=== PATIENT | female | born 1975 | race Caucasian/White ===

== ENCOUNTER 2017-07-06 11:15 | Observation (INO) ==
[~2017-07-06 11:15] MED LIST: SODIUM CHLORIDE 1,000 ML IV STA
[2017-07-06] MEDS ORDERED: ATIVAN IVP STA (11:21)
[2017-07-06] MEDS ORDERED: KEPPRA 1,000 MG in SODIUM CHLORIDE 100 ML IV STA (11:23)
[2017-07-06 11:32] LABS: BASOPHILS % (AUTO) 0.2 % (0.0-3.0); EOSINOPHILS % (AUTO) 0.1 % (0.0-7.0); HEMATOCRIT 37.3 % (37.0-47.0); HEMOGLOBIN 13.3 g/dl (12.0-16.0); IMMATURE GRANULOCYTE % (AUTO) 0.6 % (0.0-5.0); LYMPHOCYTES % (AUTO) 39.1 (10.0-50.0); MEAN CORPUSCULAR HEMOGLOBIN 37.8 pg (27.0-31.0); MEAN CORPUSCULAR HGB CONC 35.7 (31.8-35.4); MONOCYTES # (AUTO) 0.9 K/uL (0.4-2.0); MONOCYTES % (AUTO) 8.9 (0-10); NEUTROPHILS # (AUTO) 5.2 K/ul (2.0-6.9); NEUTROPHILS % (AUTO) 51.1; PLATELET COUNT 180 10^3/uL (140-440); RED BLOOD COUNT 3.52 10^6/ul (4.20-5.40)
[2017-07-06 11:38] LABS: ANISOCYTOSIS 1+ (NOT PRESENT)
[2017-07-06 11:44] LABS: ABG BASE EXCESS -3 (-2.0-2.0); ABG HCO3 23.1 (22.0-26.0); ABG PCO2 48.1 mmHg (35-45); ABG TCO2 25 (22.0-28.0)
[2017-07-06 11:50] LABS: SERUM PREGNANCY INTERNAL QC INTERNAL QC VALID
[2017-07-06 12:07] LABS: ALANINE AMINOTRANSFERASE 24 U/L (12-78); ALBUMIN 4.1 g/dL (3.4-5.0); ALBUMIN/GLOBULIN RATIO 1.58; ALKALINE PHOSPHATASE 127 U/L (42-98); ANION GAP 16.7; ASPARTATE AMINO TRANSFERASE 25 U/L (15-37); BLOOD UREA NITROGEN 11 mg/dL (7-18); BUN/CREATININE RATIO 14.28; CALCIUM 9.2 mg/dL (8.2-10.2); CARBON DIOXIDE 23 mmol/L (21-32); CHLORIDE 108 mmol/L (98-107); CREATININE 0.77 mg/dL (0.60-1.30); GLUCOSE 112 mg/dL (70-110); POTASSIUM 3.7 mmol/L (3.5-5.10); SODIUM 144 mmol/L (136-145); TOTAL PROTEIN 6.7 g/dL (6.4-8.2); VALPORIC ACID (DEPAKENE) < 2.00 ug/mL (50.00-100.00)
[2017-07-06 12:08] LABS: CREATINE KINASE 58 U/L
[2017-07-06 12:27] LABS: ADD URINE MICROSCOPIC YES; BILIRUBIN,URINE Negative (NEGATIVE); KETONES,URINE Negative (NEGATIVE); LEUKOCYTE ESTERASE ,URINE Negative (NEGATIVE); NITRITE,URINE Negative (NEGATIVE); PROTEIN,URINE 2+ (NEGATIVE); URINE, BLOOD Negative (NEGATIVE)
[2017-07-06 12:31] LABS: BACTERIA,URINE 1+ (NOT PRESENT)
--- NOTE | 2017-07-06 12:36 | CT ---
EXAM: CT head without contrast HISTORY: History of seizures COMPARISON: CT head 01/26/2016 and 12/20/2014 TECHNIQUE: Serial axial images of the brain were obtained from the skull base to the vertex without IV contrast. FINDINGS: Evaluation is limited due to artifact from hearing ends metallic artifact. There is low a ttenuation in the periventricular white matter and irregularity of the right frontal with associated christina hole. This is not significantly changed when compared to prior CT. There are calcifications of the basal ganglia. The ventricles, cisterns and sulci are unchanged. The poole-white matter junctio n is otherwise maintained. No midline shift or mass is identified. There is no abnormal intra or ex tra-axial fluid collection. The paranasal sinuses and mastoid air cells are clear. The osseous calv arium is intact. IMPRESSION: 1. No acute intracranial abnormality or hemorrhage. Evaluation is limited due to metallic artifact from the veins. 2. Surgical changes of a right frontal calvarium with underlying encephalomalacia unchanged from kylie or exam.
[2017-07-06 12:52] LABS: COCAIN SCREEN,URINE NEGATIVE (NEGATIVE)
--- NOTE | 2017-07-06 13:52 | ED.PDOC ---
General ED Provider: Dr. PIETRO ARIAS-ER Chief Complaint: Seizure Stated Complaint: she had a seizure at [facility]--she hasnt had a seizure in about a year according to the Time Seen by Physician: 10:30 Mode of Arrival: Wheelchair Information Source: Other Exam Limitations: Altered mental status Nursing and Triage Documentation Reviewed and Agree: Yes Neurological Complaint Exam - Seizure Complaint/Exam Onset/Duration: 20 min ago Symptoms Are: Resolved Episodes Lasting: Seconds Single or Multiple Episode: 1 Failed to Regain Consciousness: No Severity: Self-limited Location: All extremities Character: Generalized, Tonic-clonic Aggravating: Reports: None Alleviating: Reports: Spontaneous resolution Associated Signs and Symptoms: Reports: Bowel incontinence, Lethargy. Denies: Anxiety, Emotional distress, Impaired speech, Bladder incontinence, Trauma, Illness, Vomiting, Apnea Related History: Reports: Similar episode Meningitis Risk Factors: Reports: None Carotid Bruit Present: No Cephalohematoma Present: No Tongue Bitten: No Neck Pain Present: No Glascow Coma Scale (see protocol): 14 Nystagmus Present: No Gag Reflex Present: Yes Speech: Present: Dysarthric Aphasia: Present: Expressive Meningeal Signs Positive: No Focal Weakness: Present: None Focal Sensory Loss: Reports: None Gait: Normal [id number]: Normal Findings Pronator Drift: Present: None Romberg Test Positive: No Babinski Sign: Negative Right, Negative Left Heel to Toe Normal: No Signs of Injury: Present: Normal findings Differential Diagnoses: CVA, Intracranial Bleed, Metabolic Disorder, Seizure Review of Systems - Review Of Systems Constitutional: Reports: No symptoms Eyes: Reports: No symptoms Ears, Nose, Mouth, Throat: Reports: No symptoms Respiratory: Reports: No symptoms Cardiac: Reports: No symptoms GI: Reports: No symptoms : Reports: No symptoms Musculoskeletal: Reports: No symptoms Skin: Reports: No symptoms Neurological: Reports: Tonic-Clonic seizures Endocrine: Reports: No symptoms Hematologic/Lymphatic: Reports: Anemia All Other Systems: Reviewed and Negative Past Medical History - Past Medical History Previously Healthy: No Endocrine: Reports: Hypothyroid Cardiovascular: Reports: Hypertension Respiratory: Reports: Pneumonia, Other (STAPH INFECTION) Hematological: Reports: Other (ALL) Gastrointestinal: Reports: None Genitourinary: Reports: None Neuro/Psych: Reports: Bipolar Disorder Musculoskeletal: Reports: None Cancer: Reports: None Last Menstrual Period: unknown - Surgical History General Surgical History: Reports: Unknown - Family History Family History: Reports: Unknown - Social History Smoking Status: Never smoker Hx Substance Use: No Alcohol Screening: None Lives: With family Physical Exam - Physical Exam Appearance: Well-appearing, No pain distress, Well-nourished Eyes: AURELIO, EOMI, Conjunctiva clear, Right pupil size, Left pupil size (there is diff in pupil size but says this is normal for her) ENT: Ears normal, Nose normal, Oropharynx normal Neck: Supple Respiratory: Airway patent Cardiovascular: RRR, Pulses normal, No rub, No murmur GI/: Soft, Nontender, No masses, Bowel sounds normal, No Organomegaly Musculoskeletal: Normal strength Skin: Warm, Dry, Normal color Neurological: Alert Psychiatric: Affect appropriate, Mood appropriate Interpretation - Radiology Interpretation Radiology Interpretation By: Radiologist Radiology Results: Negative Exam Interpreted: CT Scan - EKG Interpretation Time of EKG #1: 13:55 Rate: Normal Rhythm: Sinus Ectopy: None Lequire: NL ST Segment: Normal Interpretation: nsr Re-Evaluation - Re-Evaluation Time of Re-Evaluation: 14:10 Status: Improved (moving all extremities--answering questions from her ) Vital Signs Stable: Yes Pain Level: 0 Appearance: NAD Lungs: Clear Skin: Warm and Dry Neuro: Alert and Oriented X3 CV: RRR Physician Notification - Case Discussed Physician Notified: dr wilde Time of Notification: 14:30 Critical Care Note - Critical Care Note Total Time (mins): 20 Course - Course Hematology/Chemistry: 07/06/17 11:25 07/06/17 11:25 Orders, Labs, Meds: Lab Review 07/06/17 07/06/17 07/06/17 11:13 11:25 11:25 WBC 10.10 RBC 3.52 L Hgb 13.3 Hct 37.3 MCV 106.0 H MCH 37.8 H MCHC 35.7 H RDW Coeff of Harpreet 13.1 Plt Count 180 Immature Gran % (Auto) 0.6 Neut % (Auto) 51.1 Lymph % (Auto) 39.1 Castro % (Auto) 8.9 Eos % (Auto) 0.1 Baso % (Auto) 0.2 Immature Gran # (Auto) 0.1 Neut # 5.2 Lymph # 4.0 H Castro # 0.9 Eos # 0.0 Baso # 0.0 Anisocytosis 1+ Macrocytosis 1+ Puncture Site Rr O2 Saturation 91.0 L ABG pH 7.290 L* ABG pCO2 48.1 H ABG pO2 69.0 L ABG HCO3 23.1 ABG Total CO2 25 ABG Base Excess -3 L Christian Test + FiO2 % 21.0 Sodium 144 Potassium 3.7 Chloride 108 H Carbon Dioxide 23 Anion Gap 16.7 BUN 11 Creatinine 0.77 Estimated GFR (MDRD) 82.00 BUN/Creatinine Ratio 14.28 Glucose 112 H Calcium 9.2 Magnesium 2.0 Total Bilirubin 0.40 AST 25 ALT 24 Alkaline Phosphatase 127 H Total Creatine Kinase Troponin I Total Protein 6.7 Albumin 4.1 Globulin 2.6 Albumin/Globulin Ratio 1.58 Serum , Qual Urine Color Urine Clarity Urine pH Ur Specific [place] Urine Protein Urine Glucose (UA) Urine Ketones Urine Blood Urine Nitrite Urine Bilirubin Urine Urobilinogen Ur Leukocyte Esterase Urine Microscopic WBC Ur Squamous Epith Cells Urine Bacteria Urine Opiates Screen Ur Oxycodone Screen Urine Methadone Screen Ur Propoxyphene Screen Ur Barbiturates Screen Valproic Acid < 2.00 L U Tricyclic Antidepress Ur Phencyclidine Scrn Ur Amphetamine Screen U Methamphetamines Scrn U Benzodiazepines Scrn Urine Cocaine Screen U Cannabinoids Screen 07/06/17 07/06/17 07/06/17 11:25 11:35 12:18 WBC RBC Hgb Hct MCV MCH MCHC RDW Coeff of Harpreet Plt Count Immature Gran % (Auto) Neut % (Auto) Lymph % (Auto) Castro % (Auto) Eos % (Auto) Baso % (Auto) Immature Gran # (Auto) Neut # Lymph # Castro # Eos # Baso # Anisocytosis Macrocytosis Puncture Site O2 Saturation ABG pH ABG pCO2 ABG pO2 ABG HCO3 ABG Total CO2 ABG Base Excess Christian Test FiO2 % Sodium Potassium Chloride Carbon Dioxide Anion Gap BUN Creatinine Estimated GFR (MDRD) BUN/Creatinine Ratio Glucose Calcium Magnesium Total Bilirubin AST ALT Alkaline Phosphatase Total Creatine Kinase 58 Troponin I < 0.0100 Total Protein Albumin Globulin Albumin/Globulin Ratio Serum , Qual Negative Urine Color Yellow Urine Clarity Clear Urine pH 5.0 Ur Specific [place] 1.025 Urine Protein 2+ Urine Glucose (UA) Negative Urine Ketones Negative Urine Blood Negative Urine Nitrite Negative Urine Bilirubin Negative Urine Urobilinogen 0.2 Ur Leukocyte Esterase Negative Urine Microscopic WBC 2-5 Ur Squamous Epith Cells 0-2 Urine Bacteria 1+ Urine Opiates Screen Ur Oxycodone Screen Urine Methadone Screen Ur Propoxyphene Screen Ur Barbiturates Screen Valproic Acid U Tricyclic Antidepress Ur Phencyclidine Scrn Ur Amphetamine Screen U Methamphetamines Scrn U Benzodiazepines Scrn Urine Cocaine Screen U Cannabinoids Screen 07/06/17 12:18 WBC RBC Hgb Hct MCV MCH MCHC RDW Coeff of Harpreet Plt Count Immature Gran % (Auto) Neut % (Auto) Lymph % (Auto) Castro % (Auto) Eos % (Auto) Baso % (Auto) Immature Gran # (Auto) Neut # Lymph # Castro # Eos # Baso # Anisocytosis Macrocytosis Puncture Site O2 Saturation ABG pH ABG pCO2 ABG pO2 ABG HCO3 ABG Total CO2 ABG Base Excess Christian Test FiO2 % Sodium Potassium Chloride Carbon Dioxide Anion Gap BUN Creatinine Estimated GFR (MDRD) BUN/Creatinine Ratio Glucose Calcium Magnesium Total Bilirubin AST ALT Alkaline Phosphatase Total Creatine Kinase Troponin I Total Protein Albumin Globulin Albumin/Globulin Ratio Serum , Qual Urine Color Urine Clarity Urine pH Ur Specific [place] Urine Protein Urine Glucose (UA) Urine Ketones Urine Blood Urine Nitrite Urine Bilirubin Urine Urobilinogen Ur Leukocyte Esterase Urine Microscopic WBC Ur Squamous Epith Cells Urine Bacteria Urine Opiates Screen Negative Ur Oxycodone Screen Negative Urine Methadone Screen Negative Ur Propoxyphene Screen Negative Ur Barbiturates Screen Negative Valproic Acid U Tricyclic Antidepress Negative Ur Phencyclidine Scrn Negative Ur Amphetamine Screen Negative U Methamphetamines Scrn Negative U Benzodiazepines Scrn Negative Urine Cocaine Screen Negative U Cannabinoids Screen Negative Orders Category Date Time Status ABG DRAW REQUEST Stat CARDIO 07/06/17 11:13 Completed EKG-(ED ONLY) Stat CARDIO 07/06/17 11:13 Completed Marketing Development Specialist [ED SWITCH FOREMAN APPLIED] .ONCE EMERGENCY 07/06/17 11:14 Active ED IV/MEDIPORT/POWERPORT .ONCE EMERGENCY 07/06/17 11:14 Active ABG Stat LAB 07/06/17 11:13 Completed CBC W/ AUTO DIFF Stat LAB 07/06/17 11:25 Completed COMPREHENSIVE METABOLIC PANEL Stat LAB 07/06/17 11:25 Completed CREATINE KINASE Stat LAB 07/06/17 11:25 Completed KEPPRA/LEVETIRACETAM Stat LAB 07/06/17 11:35 Received MAGNESIUM Stat LAB 07/06/17 11:25 Completed SERUM TEST [SERUM ] Stat LAB 07/06/17 11:35 Completed RBC MORPHOLOGY Stat LAB 07/06/17 11:25 Completed TROPONIN I Stat LAB 07/06/17 11:25 Completed URINALYSIS C & S IF INDICATED Stat LAB 07/06/17 12:18 Completed URINE DRUG SCREEN (RAPID FOR ED) [DRUG SCREEN, URINE, LAB 07/06/17 12:18 Completed RAPID] Stat VALPORIC ACID (DEPAKENE) Stat LAB 07/06/17 11:25 Completed 0.9 % Sodium Chloride [Saline Flush] MEDS 07/06/17 11:14 Active 1 syr IVF PRN PRN Levetiracetam Inj [Keppra] 1,000 mg MEDS 07/06/17 11:23 Discontinued 0.9 % Sodium Chloride [Sodium Chloride] 100 ml IV ONCE Lorazepam Inj [Ativan] MEDS 07/06/17 11:21 Discontinued 2 mg IVP ONCE STA Sodium Chloride 0.9% [Sodium Chloride] 1,000 ml MEDS 07/06/17 11:14 Active IV 100 mls/hr CT HEAD W/O CONTRAST Stat RADS 07/06/17 11:13 Completed Medications Generic Name Dose Route Start Last Admin Trade Name Freq PRN Reason Stop Dose Admin Sodium Chloride 1,000 mls @ 100 mls/hr 07/06/17 11:14 07/06/17 11:40 Sodium Chloride IV 07/06/17 21:13 100 mls/hr .Q10H STA Administration Sodium Chloride 1 syr 07/06/17 11:14 Saline Flush IVF PRN PRN To flush IV Discontinued Medications Generic Name Dose Route Start Last Admin Trade Name Freq PRN Reason Stop Dose Admin Levetiracetam 1,000 mg/ Sodium 110 mls @ 100 mls/hr 07/06/17 11:23 07/06/17 11:41 Chloride IV 07/06/17 12:28 100 mls/hr ONCE STA Administration Lorazepam 2 mg 07/06/17 11:21 07/06/17 11:24 Ativan IVP 07/06/17 11:22 2 mg ONCE STA Administration Long discussion with the --he asked if she could be kept here instead of being transferred to [place]---her last seizure was last year and he says she acted "just like this" after the seizure--at this time she is alert but sleepy-- answering questions and moving all extremities Vital Signs: Temp Pulse Resp BP Pulse Ox 07/06/17 11:20 97.2 F L 119 H 20 149/97 H 96 Departure - Departure Time of Disposition: 14:32 Disposition: PLACED OBSERVATION Discharge Problem: Seizure Instructions: Epilepsy (ED) Condition: Fair Pt referred to PMD for follow-up: No Allergies/Adverse Reactions: Allergies erythromycin lactobionate [From Erythrocin] Adverse Reaction (Verified 07/06/17 11:53) latex Adverse Reaction (Verified 07/06/17 11:53) Penicillins Adverse Reaction (Verified 07/06/17 11:53) Sulfa (Sulfonamide Antibiotics) Adverse Reaction (Verified 07/06/17 11:53) tape Adverse Reaction (Uncoded 12/20/14 20:31) Home Medications: Ambulatory Orders Levothyroxine Sodium [Synthroid] 75 mcg PO DAILY 05/17/14 Potassium Chloride [Klor-Con 10] 20 meq PO DAILY 05/17/14 Ziprasidone HCl 20 mg PO DAILY 05/17/14 Hydrochlorothiazide 25 mg PO DAILY 06/27/14 Lamotrigine [Lamictal] 100 mg PO QID 06/27/14 Metoprolol Tartrate [Lopressor] 50 mg PO DAILY 12/20/14 Benztropine Mesylate [Cogentin] 1 mg PO DAILY 01/26/16 Cyclobenzaprine HCl [Flexeril] 10 mg PO DAILY 01/26/16 Levetiracetam [Keppra] 500 mg PO BID 01/26/16 Valacyclovir HCl [Valtrex] 1,000 mg PO TID 01/26/16 Disposition Discussed With: Patient, Family
[2017-07-06] MEDS ORDERED: ATIVAN IVP PRN (14:35)
[2017-07-06] MEDS ORDERED: CYCLOBENZAPRINE HCL 10 MG PO PRN ×21 (14:37)
[2017-07-06] MEDS ORDERED: SODIUM CHLORIDE 1,000 ML IV SCH (15:00)
[2017-07-06 15:42] VITALS: BMI 30.8
[2017-07-06] MEDS ORDERED: LAMOTRIGINE 200 MG PO SCH (21:00)
[2017-07-06] MEDS ORDERED: NON-FORMULARY MEDICATION (Levetiracetam [Keppra] 750 MG) PO SCH (21:00)
[2017-07-06] MEDS ORDERED: BENZTROPINE MESYLATE 1 MG PO SCH (21:00)
[2017-07-06] MEDS ORDERED: NON-FORMULARY MEDICATION (Potassium Chloride [Klor-Con 10] 20 MEQ) PO SCH ×22 (21:00)
[2017-07-07 07:12] LABS: ALBUMIN 3.4 g/dL (3.4-5.0); ALBUMIN/GLOBULIN RATIO 1.55; ANION GAP 12.9; BILIRUBIN,TOTAL 0.51 mg/dL (0.00-1.20); BUN/CREATININE RATIO 10.29; CALCIUM 9.4 mg/dL (8.2-10.2); CREATININE 0.68 mg/dL (0.60-1.30); POTASSIUM 2.9 mmol/L (3.5-5.10); TOTAL PROTEIN 5.6 g/dL (6.4-8.2)
[2017-07-07 07:17] LABS: BASOPHILS % (AUTO) 0.1 % (0.0-3.0); HEMOGLOBIN 11.6 g/dl (12.0-16.0); IMMATURE GRANULOCYTE % (AUTO) 0.3 % (0.0-5.0); LYMPHOCYTES # (AUTO) 1.2 K/uL (0.60-3.4); LYMPHOCYTES % (AUTO) 16.4 (10.0-50.0); MEAN CORPUSCULAR HEMOGLOBIN 39.2 pg (27.0-31.0); MEAN CORPUSCULAR HGB CONC 37.9 (31.8-35.4); MEAN CORPUSCULAR VOLUME 103.4 fl (81.0-99.0); MONOCYTES # (AUTO) 0.5 K/uL (0.4-2.0); MONOCYTES % (AUTO) 7.4 (0-10); NEUTROPHILS # (AUTO) 5.5 K/ul (2.0-6.9); NEUTROPHILS % (AUTO) 75.8; PLATELET COUNT 138 10^3/uL (140-440); RED BLOOD COUNT 2.96 10^6/ul (4.20-5.40); WHITE BLOOD COUNT 7.26 K/ul (4.6-10.2)
[2017-07-07 07:25] LABS: ANISOCYTOSIS NOT PRESENT (NOT PRESENT); HEMATOCRIT 30.6 % (37.0-47.0)
[2017-07-07] MEDS ORDERED: POTASSIUM CHLORIDE PREMIX RUN 40 MEQ in PREMIX 100 ML WATER 2 BAG IV STA (08:17)
[2017-07-07] MEDS ORDERED: K-DUR PO STA (08:17)
[2017-07-07] MEDS ORDERED: NON-FORMULARY MEDICATION (Potassium Chloride [Klor-Con 10] 20 MEQ) PO SCH ×22 (09:00)
[2017-07-07] MEDS ORDERED: METOPROLOL TARTRATE 25 MG PO SCH ×22 (09:00)
[2017-07-07] MEDS ORDERED: NON-FORMULARY MEDICATION (Levothyroxine Sodium [Synthroid] 75 MCG) PO SCH ×22 (09:00)
[2017-07-07] MEDS ORDERED: ZIPRASIDONE HCL 20 MG PO SCH (09:00)
[2017-07-07] MEDS ORDERED: VALACYCLOVIR HCL 1000 MG PO SCH (09:00)
[2017-07-07 13:22] VITALS: BP 105/74; TEMP 98.2
[2017-07-07] MEDS ORDERED: NON-FORMULARY MEDICATION (Levetiracetam [Keppra] 750 MG) PO SCH (21:00)
[2017-07-07] MEDS ORDERED: BENZTROPINE MESYLATE 1 MG PO SCH (21:00)
[2017-07-07] MEDS ORDERED: LAMOTRIGINE 200 MG PO SCH (21:00)
[2017-07-08] MEDS ORDERED: NON-FORMULARY MEDICATION (Hydrochlorothiazide [Hydrochlorothiazide] 25 MG) PO SCH ×22 (09:00)
--- NOTE | 2017-07-18 15:23 | HP ---
DATE OF SERVICE: 07/06/17 CHIEF COMPLAINT: Unresponsive episode and seizure. HISTORY OF PRESENT ILLNESS: The patient was at [employer] and had an unresponsive episode and seizures and had a soiling of the clothes. She was in post-ictal stage where she is not responding. Eyes are open. Right pupil is larger than the left. Nonverbal. Brought to the emergency room and seen by Dr. Herrera in the emergency room. Initial evaluation shows Valproic acid level is less than 2. CT of the head was negative. Urine-no infection. BUN and creatinine is normal. ABG showed a pH of 7.290, PCO2 48.1, PO2 69, white count is normal and platelets are normal. The patient was still in a post ictal stage where she was not responding just having steady looks in the air. At that time, the patient was admitted to the hospital for observation and neuro checks. The patient did not have any recent stressors. REVIEW OF SYSTEMS: No fever, no coughing, no congestion. No recent falls or head trauma. PAST MEDICAL HISTORY: Very extensive with history of seizure disorder. 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 She sees Dr. Mora. The seizures started after they put the port in the brain for the chemotherapy of the ALL. She had DVT's is 2015 in the left leg. She has a history of stroke. GERD. Osteoarthritis. History of hypothyroidism. Bipolar disorder. Depression, Anxiety. 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 Inflammation in the left eye being treated by Dr. Lomas. PAST SURGICAL HISTORY: Cholecystectomy. PERSONAL HISTORY: Does not smoke or drink, but the smokes. FAMILY HISTORY: Significant for the diabetes. MEDICATIONS: Synthroid 75 mcg daily Ziprasidone 20 mg daily Klor-Con 20 mEq daily with meals Lamictal 200 mg at bedtime Hydrochlorothiazide 25 mg every other day Keppra 500 mg daily Valtrex 1,000 mg daily Flexeril 10 mg daily Cogentin 1 mg at bedtime Prednisolone Acetate 10 ml at hs Keppra 750 mg at bedtime Propylene Glycol one drop each eye every hour prn Azelastine 2 sprays NS twice daily Metoprolol Tartrate 12.5 mg daily Atropine Sulfate 10 ml weekly ALLERGIES: Erythromycin, latex and Penicillin. PHYSICAL EXAMINATION: V/S: Blood pressure 141/97, respiratory rate 96, temperature 97.2, saturation 100% on 2 liters. Heart rate 119. HEENT: Atraumatic, normocephalic. No scleral icterus. Mucosa dry. NECK: Supple. No JVD, no bruit. No lymphadenopathy. No thyromegaly. HEART: S1, S2 normal. No murmur. No cyanosis or clubbing. No ascites. LUNGS: Clear to auscultation. No rales or rhonchi. ABDOMEN: Soft, nontender. Bowel sounds are active. No CVA tenderness. No rigidity or guarding. EXTREMITIES: No cyanosis, clubbing or pedal edema. MUSCULOSKELETAL: Normal joints, no swelling. NEUROLOGIC: Still patient is very slow in answering the questions. is answering all of the questions. He says this is normal for the patient after having a seizure. SKIN: Intact; no open lesions. LYMPHATIC: No lymph nodes palpable. LABS: White count is 10.10, hemoglobin 13.3, hematocrit 37.3, platelet count 180, ABG with pH 7.290, PCO2 48.1, PO2 69, sodium 144, potassium 3.7, chloride 108, bicarb 23, BUN 11, creatinine 0.77, glucose 112. Urine negative. Toxicology with valproic acid level less than 2. ASSESSMENT: 1. BREAK THROUGH SEIZURE WITH EXTENSIVE HISTORY FOR ALL AND UNDER CHEMO. SHE IS SEEN BY DR. MORA. 2. BIPOLAR DISORDER 3. ANXIETY DISORDER 4. HYPOTHYROIDISM 5. HYPERTENSION 6. TREATMENT FOR SHINGLES, CHRONIC SUPPRESSIVE TREATMENT PLAN: 1. Admit the patient to observation. 2. Seizure precautions. 3. Fall precautions. 4. Continue the Keppra. 5. Continue IV fluids. 6. Aspiration precautions. 7. Regular diet. 8. Will follow up with the patient in daily rounds. TIME SPENT: MORE THAN 70 minutes today. YADY
--- NOTE | 2017-08-08 12:53 | DS ---
DATE OF SERVICE: 07/07/17 FINAL DIAGNOSIS: 1. Break through seizure 2. Change in mental status secondary to the seizure 3. Status post Hypokalemia 4. Bipolar 5. History of pneumonia 6. Cholecystectomy 7. Bladder sling surgery 8. History of shingles right eye 9. Leukemia, remission still does intense chemo 10.Rheumatic fever 11.Hearing loss after Rheumatic fever DISCHARGE INSTRUCTIONS: Discharge the patient home. Followup with the primary care provider. In case of seizure please bring patient back to the emergency room. MEDICATIONS AT DISCHARGE: Systane eye drops Astelin eye drops Cogentin Flexeril Hydrochlorothiazide Lamictal Keppra Synthroid Lopressor Potassium Prednisone Valtrex NEW PRESCRIPTIONS: No new medications added DIET INSTRUCTIONS: Cardiac and healthy ACTIVITY: As much as tolerated SMOKING: Never smoker DISEASE SPECIFIC EDUCATION: Seizure disorder Fall precaution Advised not to drive HOSPITAL COURSE: Carpio Inga who is a 42 year old female with history of seizure problems brought to the emergency room after she had a witnessed seizure in the [place]ze and after bringing the patient to the emergency room she had one more seizure for which the patient was evaluated in the emergency room by Dr. Herrera. The patient was given 2mg of the Ativan in the emergency room which broke the seizure and the patient was confused and postictal. At that time was admitted to the hospital and started on the IV fluids. Potassium was 2.9 which was corrected, went up to 3.6. Hgb and hct had dropped from hgb 13.3 to 11.6. Urine did not show any infection. CT of the head is negative for any acute problem. By next day at noon the patient is more awake and alert and did not have any problems. She says that every time she does a seizure she get a change a mental status and she has to take come rest and she will be fine. The patient has a followup with the PMD and the neurologist. The patient is being discharged home. TIME SPENT: MORE THAN 55 MINUTES MTDD
== END 2017-07-07 17:15 | disposition home or self-care (01) ==
LOC: ED 11:15 → SCU 14:36
PROVIDERS: ADMIT Emergency Medicine; ATTEND Emergency Medicine
DX: G40.409 Other generalized epilepsy and epileptic syndromes, not intractable, without status epilepticus (principal); C91.01 Acute lymphoblastic leukemia, in remission; E87.6 Hypokalemia; F31.9 Bipolar disorder, unspecified; B02.30 Zoster ocular disease, unspecified; I00 Rheumatic fever without heart involvement; H91.8X3 Other specified hearing loss, bilateral; Z79.899 Other long term (current) drug therapy; Z87.01 Personal history of pneumonia (recurrent); Z86.718 Personal history of other venous thrombosis and embolism
CPT/HCPCS: 36415; 80053; 80164; 80306; 81001; 82542; 82550; 82803; 83735; 84132; 84484; 84703; 85008; 85025; 87081; 93005; 93010; 96361; 96365; 96366; 96374; 96375; 99284

== ENCOUNTER 2024-11-15 01:17 | Inpatient (IN) ==
[2024-11-15 01:38] VITALS: BMI 33.5
[2024-11-15 01:48] LABS: BASOPHILS % (AUTO) 0.2 % (0.0-3.0); EOSINOPHILS # (AUTO) 0.2 K/ul (0.0-0.7); HEMATOCRIT 35.1 % (37.0-47.0); HEMOGLOBIN 12.3 g/dl (12.0-16.0); IMMATURE GRANULOCYTE % (AUTO) 0.2 % (0.0-5.0); LYMPHOCYTES # (AUTO) 1.1 K/uL (0.60-3.4); LYMPHOCYTES % (AUTO) 18.3 (10.0-50.0); MEAN CORPUSCULAR HEMOGLOBIN 35.5 pg (27.0-31.0); MEAN CORPUSCULAR VOLUME 101.4 fl (81.0-99.0); MONOCYTES # (AUTO) 0.3 K/uL (0.4-2.0); MONOCYTES % (AUTO) 5.3 (0-10); NEUTROPHILS # (AUTO) 4.4 K/ul (2.0-6.9); PLATELET COUNT 129 10^3/uL (140-440); RDW COEFFICIENT OF VARIATION 14.7 % (11.6-14.8); RED BLOOD COUNT 3.46 10^6/ul (4.20-5.40); WHITE BLOOD COUNT 6.07 K/ul (4.6-10.2)
[2024-11-15 01:59] LABS: ALANINE AMINOTRANSFERASE 17.4 U/L (0-35); ALBUMIN 3.92 g/dL (3.5-5.0); ALKALINE PHOSPHATASE 126.2 U/L (38-126); ASPARTATE AMINO TRANSFERASE 30.8 U/L (14-36); BILIRUBIN,TOTAL 0.91 mg/dL (0.2-1.3); BLOOD UREA NITROGEN 9.7 mg/dL (7-17); CARBON DIOXIDE 21.2 mmol/L (22-30.0); CHLORIDE 95.6 mmol/L (98-107); SODIUM 127.7 mmol/L (134.5-145); TOTAL PROTEIN 5.96 g/dL (6.3-8.2)
[2024-11-15] MEDS: SODIUM CHLORIDE 1,000 ML IV ONE ×2 (02:03→03:05)
--- NOTE | 2024-11-15 02:04 | DI ---
EXAM: SINGLE VIEW OF THE CHEST. History: Chest pain, short of breath Comparison: Chest radiograph 12/12/2023 FINDINGS: Heart size is normal. Left lower lobe infiltrate. No appreciable pleural fluid and no pn eumothorax. Hazy opacity within the left upper lobe. No acute osseous abnormalities. Impression: Left lower lobe pneumonia and questionable left upper lobe pneumonia
[2024-11-15] MEDS: MAXIPIME 2 GM/50 ML D5W 2 GM/50 ML BAG IV ONE (02:14)
[2024-11-15 02:18] LABS: BLOOD ALCOHOL < 10.0 mg/dL (0.0-50.0); POTASSIUM 2.75 mmol/L (3.5-5.1); TROPONIN I < 0.012 ng/ml (0.0000-0.120)
[2024-11-15 02:23] LABS: PARTIAL THROMBOPLASTIN TIME 28.8 SEC (23.9-40.0); PROTHROMBIN TIME 10.9 SEC (9.3-11.0)
[2024-11-15] MEDS: K-DUR PO STA (02:28)
--- NOTE | 2024-11-15 02:49 | CT ---
EXAM: CT HEAD WITHOUT CONTRAST 11/15/2024. SAGITTAL AND CORONAL REFORMATTED IMAGES OBTAINED HISTORY: Altered mental status COMPARISON: 04/14/2022 FINDINGS: There is no evidence of intracranial hemorrhage. The midline is maintained. There is no h ydrocephalus. Stable right frontal lobe encephalomalacia. No cerebellar tonsillar ectopia. Evaluat ion of the calvarium shows no fracture. The mastoid air cells are normally pneumatized. Mucosal thi ckening throughout the paranasal sinuses consistent with pansinusitis. IMPRESSION: 1. No acute intracranial abnormality 2. Stable right frontal lobe encephalomalacia. 3. Pansinusitis. All CT scans are performed using dose optimization techniques as appropriate to the performed exam an d include at least one of the following: Automated exposure control, adjustment of the mA and/or kV according t o size, and the use of iterative reconstruction technique.
[2024-11-15 02:51] LABS: RSV MOLECULAR NEGATIVE BY NAAT (NEGATIVE)
[2024-11-15 02:52] LABS: MOLECULAR FLU A NEGATIVE BY NAAT (NEGATIVE); MOLECULAR FLU B NEGATIVE BY NAAT (NEGATIVE); SARS COV-2 RNA RAPID NAAT NEGATIVE (NEGATIVE)
[2024-11-15] MEDS: PROTONIX IVP ONE (03:05)
--- NOTE | 2024-11-15 03:16 | ED.PDOC ---
General ED Provider: Dr. ALIRIO BOX DO Chief Complaint: Shortness of Air Stated Complaint: 49-year-old female presents to the ER reporting shortness of breath, nausea vomiting and confusion. Accompanied by her who is the primary historian given the confusion. The patient's had a persistent cough for the last 3 weeks and had some antibiotics and steroids prescribed by their primary care provider and fell. Despite this, she has had continued coughing and what sounds like posttussive emesis. She also has increased confusion which the patient does have a history of a hearing impairment as well as encephalomalacia. She is reportedly confused consistent with when she has had urinary tract infections in the past. She currently denies any urinary symptoms. History limited otherwise due to the patient's confusion where she seems to answer questions a bit tangential he compared to the questions asked such as talking about other situations like when she injured her ankles. It is unclear if she thinks that I am asking about the situations or if she is just focused on those instead of the questions being asked in person. I consider this confusion due to the patient's hearing impairment which does make it difficult for her to understand what I am asking Time Seen by Provider: 11/15/24 01:20 Information Source: Patient and Family Primary Care Provider: ANGELIA BAILEY Nursing and Triage Documentation Reviewed and Agree: Yes What is Opioid Naive?: *Opioid Naive implies the patient is not already taking opioids or not chronically receiving opioids on a daily basis. *PRN dosing is not "usually" associated with tolerance. *Patients are at higher risk of over-sedation and aspiration. What is Opioid Tolerant?: *Opioid Tolerance implies less than the expected response to an opioid. *Acquired tolerance is defined by the patient taking 60mg of oral morphine daily (or equianalgesic dose of another opioid) for 1 week or more. *Often associated with chronic pain. *May take more than usual dose to achieve desired pain control. Review of Systems Review Of Systems Constitutional: Reports No symptoms All Other Systems: Reviewed and Negative [facility] Medical History (Updated 11/17/24 @ 13:19 by DEANNE PAGAN, [employer]) Thyroid condition E07.9 - Disorder of thyroid, unspecified (ICD-10) Hearing loss H91.90 - Unspecified hearing loss, unspecified ear (ICD-10) Family History FATHER Diabetes Other Hearing loss Social History Smoking and tobacco status: Never smoker History of recent travel: No Surgical History Status post myringotomy with insertion of tube Z96.22 - Myringotomy tube(s) status (ICD-10) Female Reproductive History Menstrual Hx Hysterectomy: No Hx Tubal Ligation: No Physical Exam Physical Exam Appearance: Reports Well-appearing, No pain distress, Well-nourished and Other (Tangential and sometimes off topic when answering questions. Otherwise nontoxic in appearance.) Eyes: Reports AURELIO and EOMI ENT: Reports Nose normal and Oropharynx normal Neck: Supple Respiratory: Reports Airway patent, Breath sounds clear and Respirations nonlabored Cardiovascular: Reports RRR and Pulses normal GI/: Reports Soft and Nontender Musculoskeletal: Reports Normal strength and ROM intact Skin: Reports Warm, Dry and Normal color Neurological: Reports Sensation intact, Motor intact, Alert and Oriented Psychiatric: Reports Affect appropriate and Mood appropriate Interpretation EKG Interpretation EKG Interpretation By: ED Physician (Independent interpretation) Time of EKG #1: 02:44 Rate: Tachy (129) Rhythm: Sinus Ectopy: None Minto: NL ST Segment: Normal Interpretation: Nonischemic EKG, tachycardic Radiology Interpretation Radiology Interpretation By: Radiologist Radiology Results: Positive (Left lower lobe and possible upper lobe pneumonia) Exam Interpreted: Portable CXR Re-Evaluation Re-Evaluation Additional Comments: 49-year-old female presents to the ER with confusion and persistent cough. Chest x-ray consistent with pneumonia. She does not have a leukocytosis. She is afebrile nontoxic but she does demonstrate some confusion. ABG was a mixed gas study evidenced by the low oxygen level. She does not have a significant hypercarbia however which is what I was trying to assess with regards to her confusion. She does not have a abnormal pH either. I obtained a pneumonia which was also negative, given the pneumonia found on chest x-ray, the patient was given 2 g of cefepime initially. She is tachycardic but otherwise remained stable. I did not pursue a septic workup. The patient was also found to have a hyponatremia with a sodium of 127.7 as well as hypokalemia. These could also be contributing factors to her confusion. Will continue IV fluids. This patient will require hospitalization. I will continue gentle rehydration in the emergency department and recheck her labs with plans to present to the hospitalist service later this morning. 0316: Urinalysis still pending. Patient tolerating fluids well. She has received her antibiotics. Her heart rate is improving. Blood pressures remained stable but soft. Oxygen saturation 97% on room air. Course Course 11/19/24 05:11 11/19/24 05:11 Orders, Labs, Meds: Lab Review 11/15/24 11/15/24 11/15/24 01:40 02:09 02:20 WBC 6.07 RBC 3.46 L Hgb 12.3 Hct 35.1 L MCV 101.4 H MCH 35.5 H MCHC 35.0 RDW Coeff of Harpreet 14.7 Plt Count 129 L Immature Gran % (Auto) 0.2 Neut % (Auto) 73.0 Lymph % (Auto) 18.3 [place] % (Auto) 5.3 Eos % (Auto) 3.0 Baso % (Auto) 0.2 Neut # (Auto) 4.4 Lymph # (Auto) 1.1 [place] # (Auto) 0.3 L Eos # (Auto) 0.2 Baso # (Auto) 0.0 Immature Gran # (Auto) 0.0 PT 10.9 INR 1.05 APTT 28.8 VBG pH VBG pCO2 VBG pO2 VBG HCO3 VBG O2 Saturation Sodium 127.7 L Potassium 2.75 L* Chloride 95.6 L Carbon Dioxide 21.2 L Anion Gap 13.65 BUN 9.7 Creatinine 0.70 Estimated GFR (MDRD) 89.00 BUN/Creatinine Ratio 13.85 Glucose 128.0 H Calcium 8.60 Magnesium 1.73 Total Bilirubin 0.91 AST 30.8 ALT 17.4 Alkaline Phosphatase 126.2 H Ammonia 9.2 Troponin I < 0.012 NT-Pro-B Natriuret Pep 62 Total Protein 5.96 L Albumin 3.92 Globulin 2.04 Albumin/Globulin Ratio 1.92 Urine Color Urine Clarity Urine pH Ur Specific [place] Urine Protein Urine Glucose (UA) Urine Ketones Urine Blood Urine Nitrite Urine Bilirubin Urine Urobilinogen Ur Leukocyte Esterase Urine Microscopic RBC Urine Microscopic WBC Ur Squamous Epith Cells Urine Bacteria CSF Strep pneumoniae Ag Urine Opiates Screen Ur Oxycodone Screen Urine Methadone Screen Ur Barbiturates Screen U Tricyclic Antidepress Levetiracetam Ur Phencyclidine Scrn Ur Amphetamine Screen U Methamphetamines Scrn U Benzodiazepines Scrn Urine Cocaine Screen U Cannabinoids Screen Plasma/Serum Alcohol < 10.0 Influ A Molecular Assay Negative by naat Influ B Molecular Assay Negative by naat Urine Legionella Ag RSV Antigen Negative by naat SARS CoV-2 RNA Rapid HIEU Negative Staphs Organism ID S. pneumoniae Ag Source S. pneumoniae Ag Intrp Ref Test Please Note 11/15/24 11/15/24 11/15/24 03:40 05:29 05:36 WBC RBC Hgb Hct MCV MCH MCHC RDW Coeff of Harpreet Plt Count Immature Gran % (Auto) Neut % (Auto) Lymph % (Auto) [place] % (Auto) Eos % (Auto) Baso % (Auto) Neut # (Auto) Lymph # (Auto) [place] # (Auto) Eos # (Auto) Baso # (Auto) Immature Gran # (Auto) PT INR APTT VBG pH 7.53 H VBG pCO2 23 L VBG pO2 181 H VBG HCO3 19.2 L VBG O2 Saturation 99.7 H Sodium 131.2 L Potassium 3.74 Chloride 103.1 Carbon Dioxide 20.9 L Anion Gap 10.94 BUN 8.1 Creatinine 0.69 Estimated GFR (MDRD) 90.00 BUN/Creatinine Ratio 11.73 Glucose 126.8 H Calcium 8.25 L Magnesium Total Bilirubin AST ALT Alkaline Phosphatase Ammonia Troponin I NT-Pro-B Natriuret Pep Total Protein Albumin Globulin Albumin/Globulin Ratio Urine Color [place] Urine Clarity Slightly Urine pH 6.5 Ur Specific [place] 1.015 Urine Protein 2+ H Urine Glucose (UA) Trace H Urine Ketones Negative Urine Blood Trace-intact H Urine Nitrite Positive H Urine Bilirubin Negative Urine Urobilinogen 1.0 H Ur Leukocyte Esterase 1+ H Urine Microscopic RBC 2-5 Urine Microscopic WBC 10-20 Ur Squamous Epith Cells 10-20 Urine Bacteria 1+ CSF Strep pneumoniae Ag Not indicated. Urine Opiates Screen Negative Ur Oxycodone Screen Negative Urine Methadone Screen Negative Ur Barbiturates Screen Negative U Tricyclic Antidepress Negative Levetiracetam Ur Phencyclidine Scrn Negative Ur Amphetamine Screen Negative U Methamphetamines Scrn Negative U Benzodiazepines Scrn Positive H Urine Cocaine Screen Negative U Cannabinoids Screen Negative Plasma/Serum Alcohol Influ A Molecular Assay Influ B Molecular Assay Urine Legionella Ag Negative RSV Antigen SARS CoV-2 RNA Rapid HIEU Staphs Organism ID Not indicated. S. pneumoniae Ag Source Urine S. pneumoniae Ag Intrp Negative Ref Test Please Note Comment 11/15/24 11/16/24 07:40 05:07 WBC 5.25 RBC 2.99 L Hgb 10.9 L Hct 31.8 L MCV 106.4 H D MCH 36.5 H MCHC 34.3 RDW Coeff of Harpreet 15.7 H Plt Count 141 Immature Gran % (Auto) 0.2 Neut % (Auto) 56.6 Lymph % (Auto) 27.6 [place] % (Auto) 11.4 H Eos % (Auto) 4.0 Baso % (Auto) 0.2 Neut # (Auto) 3.0 Lymph # (Auto) 1.5 [place] # (Auto) 0.6 Eos # (Auto) 0.2 Baso # (Auto) 0.0 Immature Gran # (Auto) 0.0 PT INR APTT VBG pH VBG pCO2 VBG pO2 VBG HCO3 VBG O2 Saturation Sodium 139.8 Potassium 3.61 Chloride 108.0 H Carbon Dioxide 27.8 Anion Gap 7.61 BUN 6.2 L Creatinine 0.68 Estimated GFR (MDRD) 92.00 BUN/Creatinine Ratio 9.11 Glucose 95.9 Calcium 8.26 L Magnesium Total Bilirubin 0.33 AST 41.0 H ALT 15.8 Alkaline Phosphatase 101.9 Ammonia Troponin I NT-Pro-B Natriuret Pep Total Protein 4.95 L Albumin 2.97 L Globulin 1.98 Albumin/Globulin Ratio 1.50 Urine Color Urine Clarity Urine pH Ur Specific [place] Urine Protein Urine Glucose (UA) Urine Ketones Urine Blood Urine Nitrite Urine Bilirubin Urine Urobilinogen Ur Leukocyte Esterase Urine Microscopic RBC Urine Microscopic WBC Ur Squamous Epith Cells Urine Bacteria CSF Strep pneumoniae Ag Urine Opiates Screen Ur Oxycodone Screen Urine Methadone Screen Ur Barbiturates Screen U Tricyclic Antidepress Levetiracetam <2.0 L Ur Phencyclidine Scrn Ur Amphetamine Screen U Methamphetamines Scrn U Benzodiazepines Scrn Urine Cocaine Screen U Cannabinoids Screen Plasma/Serum Alcohol Influ A Molecular Assay Influ B Molecular Assay Urine Legionella Ag RSV Antigen SARS CoV-2 RNA Rapid HIEU Staphs Organism ID S. pneumoniae Ag Source S. pneumoniae Ag Intrp Ref Test Please Note Orders Category Date Time Status ADMIT OBSERVATION [PLACE PATIENT OBSERVATION] .TO ADMISSION 11/15/24 05:53 Completed MEDSURG (MONITORED BED) EKG-(ED ONLY) Stat CARDIO 11/15/24 01:42 Completed ACTIVITY .Early Mobilization for VTE Prevention CARE 11/15/24 07:14 Completed INTAKE & OUTPUT Q8HR CARE 11/15/24 07:14 Completed NOTIFY SPEECH THERAPIST DIRECT ONCE CARE 11/15/24 11:55 Completed TELEMETRY MONITORING TELE CARE 11/15/24 05:53 Completed VITAL SIGNS Q4HR CARE 11/15/24 07:14 Completed REGULAR DIET DIETARY 11/15/24 Breakfast Completed ALCOHOL LEVEL [BLOOD ALCOHOL] Stat LAB 11/15/24 01:40 Completed AMMONIA Stat LAB 11/15/24 02:09 Completed BLOOD CULTURE Routine LAB 11/15/24 08:14 Completed BMP [BASIC METABOLIC PANEL] Stat LAB 11/15/24 05:29 Completed CBC W/ AUTO DIFF DAILY@0600 LAB 11/16/24 05:07 Completed CBC W/ AUTO DIFF DAILY@0600 LAB 11/17/24 05:22 Completed CBC W/ AUTO DIFF Stat LAB 11/15/24 01:40 Completed CMP [COMPREHENSIVE METABOLIC PANEL] Stat LAB 11/15/24 01:40 Completed COMPREHENSIVE METABOLIC PANEL DAILY@0600 LAB 11/16/24 05:07 Completed COMPREHENSIVE METABOLIC PANEL DAILY@0600 LAB 11/17/24 05:22 Completed COVID [SARS COV-2 RNA RAPID HIEU] Stat LAB 11/15/24 02:20 Completed DRUG SCREEN (RAPID FOR ED) [DRUG SCREEN, URINE, RAPID] LAB 11/15/24 03:40 Completed Stat ED PROBNP [NT-PROBNP(ED)] Stat LAB 11/15/24 01:40 Completed FLU A & B MOLECULAR [FLU A/B MOLECULAR] Stat LAB 11/15/24 02:20 Completed KEPPRA/LEVETIRACETAM Routine LAB 11/15/24 07:40 Completed LEGIONELLA URINARY ANTIGEN Stat LAB 11/15/24 03:40 Completed MAGNESIUM Stat LAB 11/15/24 01:40 Completed MRSA SCREEN Routine LAB 11/15/24 07:50 Completed PT WITH INR Stat LAB 11/15/24 01:40 Completed PTT [PARTIAL THROMBOPLASTIN TIME] Stat LAB 11/15/24 01:40 Completed RSV Stat LAB 11/15/24 02:20 Completed STREP PNEUMO AG, URINE Routine LAB 11/15/24 03:40 Completed TROPONIN I Stat LAB 11/15/24 01:40 Completed URINALYSIS C & S IF INDICATED Stat LAB 11/15/24 03:40 Completed URINE CULTURE Stat LAB 11/15/24 03:40 Completed VENOUS BLOOD GAS Stat LAB 11/15/24 05:36 Completed Acetaminophen [Tylenol] Meds 11/15/24 07:14 Discontinued 650 mg PO Q4H PRN Azithromycin Inj [Zithromax] 500 mg Meds 11/15/24 11:00 Discontinued 0.9 % Sodium Chloride [Sodium Chloride] 250 ml IV DAILY Cefepime 2 gm/D5w [Maxipime 2 gm/50 ml D5w] Meds 11/15/24 02:09 Discontinued 2 gm in 50 ml IV ONCE Ceftriaxone/D5w 1 gm Premix [Rocephin 1 gm/50 ml D5w] Meds 11/15/24 09:00 Discontinued 1 gm in 50 ml IV DAILY Ergocalciferol (Vitamin D2) [Drisdol] Meds 11/15/24 13:30 Discontinued 50,000 unit PO MoFr@0900 Escitalopram Oxalate [Lexapro] Meds 11/15/24 13:30 Discontinued 5 mg PO DAILY Lamotrigine [Lamictal] Meds 11/15/24 13:15 Discontinued 150 mg PO QAM Lamotrigine [Lamictal] Meds 11/15/24 21:00 Discontinued 200 mg PO BEDTIME Levothyroxine Sodium [Synthroid] Meds 11/16/24 06:00 Discontinued 75 mcg PO QDAC2 Lorazepam [Ativan] Meds 11/15/24 13:13 Discontinued 0.5 mg IVP ONCE ONE Lorazepam [Ativan] Meds 11/16/24 14:17 Discontinued 1 mg IVP Q6HR PRN Lorazepam [Ativan] Meds 11/15/24 18:28 Discontinued 3 mg IVP ONCE PRN Melatonin Meds 11/15/24 21:00 Discontinued 9 mg PO BEDTIME Olanzapine [Zyprexa] Meds 11/15/24 21:00 Discontinued 10 mg PO BEDTIME Ondansetron HCl/Pf [Zofran Sdv] Meds 11/15/24 07:18 Discontinued 4 mg IVP Q6H PRN Pantoprazole Sodium [Protonix] Meds 11/15/24 03:01 Discontinued 40 mg IVP ONCE ONE Potassium Chloride Additive [Potassium Chloride 40 Meq Meds 11/15/24 03:04 Discontinued Vial-Additive Only] 40 meq IV ONCE ONE Potassium Chloride [K-Dur] Meds 11/15/24 02:21 Discontinued 40 meq PO ONCE STA Sodium Chloride 0.9% [Sodium Chloride] 1,000 ml Meds 11/15/24 07:30 Discontinued IV 75 mls/hr Sodium Chloride 0.9% [Sodium Chloride] 1,000 ml Meds 11/15/24 01:58 Discontinued IV BOLUS Sodium Chloride 0.9% [Sodium Chloride] 1,000 ml Meds 11/15/24 03:01 Discontinued IV BOLUS Valacyclovir HCl [Valtrex] Meds 11/16/24 09:00 Discontinued 500 mg PO TUTHSA CHEST, 1V AP ONLY Stat RADS 11/15/24 01:[address] HEAD W/O CONTRAST Stat RADS 11/15/24 01:46 Completed SPEECH CONSULT Routine THERAPIES 11/15/24 13:00 Completed SPEECH CONSULT Routine THERAPIES 11/15/24 15:23 Completed Medications Discontinued Medications Generic Name Dose Route Start Last Admin Trade Name Freq PRN Reason Stop Dose Admin Acetaminophen 650 mg 11/15/24 07:14 11/17/24 21:29 Acetaminophen 325 Mg Tablet PO 650 mg Q4H PRN Administration Mild Pain Azithromycin 500 mg 11/19/24 08:30 11/19/24 09:02 Azithromycin 250 Mg Tablet PO 11/19/24 08:31 500 mg ONCE ONE Administration Cefuroxime Axetil 200 mg 11/19/24 08:30 11/19/24 09:01 Cefpodoxime Proxetil 200 Mg Tablet PO 11/19/24 08:31 200 mg ONCE ONE Administration Ergocalciferol 50,000 unit 11/15/24 13:30 11/19/24 09:02 Ergocalciferol (Vitamin D2) 50,000 Unit Capsule PO 50,000 unit MoFr@0900 BETTY Administration Escitalopram Oxalate 5 mg 11/15/24 13:30 11/19/24 09:02 Escitalopram Oxalate 10 Mg Tablet PO 5 mg DAILY BETTY Administration Sodium Chloride 1,000 mls @ 1,000 mls/hr 11/15/24 01:58 11/15/24 03:05 Sodium Chloride IV 11/15/24 02:57 Infused BOLUS ONE Infusion CEFEPIME 2 GM/D5W 2 gm in 50 mls @ 100 mls/hr 11/15/24 02:09 11/15/24 02:14 Maxipime 2 Gm/50 Ml D5w IV 11/15/24 02:38 100 mls/hr ONCE ONE Administration Sodium Chloride 1,000 mls @ 1,000 mls/hr 11/15/24 03:01 11/15/24 04:42 Sodium Chloride IV 11/15/24 04:00 Infused BOLUS ONE Infusion Sodium Chloride 1,000 mls @ 75 mls/hr 11/15/24 07:30 11/19/24 09:03 Sodium Chloride IV Not Given .[id number] BETTY CEFTRIAXONE/D5W 1 GM PREMIX 1 gm in 50 mls @ 100 mls/hr 11/15/24 09:00 11/17/24 09:19 Rocephin 1 Gm/50 Ml D5w IV 11/18/24 08:59 100 mls/hr DAILY BETTY Administration Azithromycin 500 mg/ Sodium 250 mls @ 250 mls/hr 11/15/24 11:00 11/17/24 10:34 Chloride IV 11/18/24 08:59 250 mls/hr DAILY BETTY Administration Iohexol 100 ml 11/17/24 09:58 11/17/24 14:55 Iohexol 350 Mg/Ml 100ml IVP 11/17/24 09:59 100 ml ONCE ONE Administration Lamotrigine 150 mg 11/15/24 13:15 11/19/24 09:02 Lamotrigine 25 Mg Tablet PO 150 mg QAM BETTY Administration Lamotrigine 200 mg 11/15/24 21:00 11/18/24 20:12 Lamotrigine 25 Mg Tablet PO 200 mg BEDTIME BETTY Administration Levalbuterol HCl 1.25 mg 11/16/24 21:30 11/17/24 05:14 Levalbuterol Hcl 1.25 Mg/3 Ml Vial.Neb NEB 1.25 mg RTQ6H PRN Administration Wheezing Levothyroxine Sodium 75 mcg 11/16/24 06:00 11/19/24 05:09 Levothyroxine Sodium 75 Mcg Tablet PO 75 mcg QDAC2 BETTY Administration Lorazepam 0.5 mg 11/15/24 13:13 11/15/24 13:39 Lorazepam Inj 2 Mg/Ml Vial IVP 11/15/24 13:14 0.5 mg ONCE ONE Administration Lorazepam 3 mg 11/15/24 18:28 11/15/24 20:12 Lorazepam Inj 2 Mg/Ml Vial IVP 3 mg ONCE PRN Administration Agitation Lorazepam 1 mg 11/16/24 14:17 11/18/24 01:03 Lorazepam Inj 2 Mg/Ml Vial IVP 1 mg Q6HR PRN Administration Agitation Melatonin 9 mg 11/15/24 21:00 11/18/24 20:12 Melatonin 3 Mg Tablet PO 9 mg BEDTIME BETTY Administration Olanzapine 10 mg 11/15/24 21:00 11/18/24 20:13 Olanzapine 10 Mg Tablet PO 10 mg BEDTIME BETTY Administration Olanzapine 10 mg 11/16/24 18:30 Olanzapine 10 Mg Vial IM Q6HR PRN Agitation Olanzapine 5 mg 11/16/24 21:49 Olanzapine 10 Mg Vial IM Q6HR PRN Agitation Ondansetron HCl 4 mg 11/15/24 07:18 Ondansetron Hcl/Pf 4 Mg/2 Ml Sdv IVP Q6H PRN Nausea / Vomiting Pantoprazole Sodium 40 mg 11/15/24 03:01 11/15/24 03:05 Pantoprazole Sodium 40 Mg Vial IVP 11/15/24 03:02 40 mg ONCE ONE Administration Potassium Chloride 40 meq 11/15/24 02:21 11/15/24 02:28 Potassium Chloride 20 Meq Tab PO 11/15/24 02:22 40 meq ONCE STA Administration Potassium Chloride 40 meq 11/15/24 03:04 11/15/24 03:20 Potassium Chloride 40 Meq/20 Ml Vial IV 11/15/24 03:05 40 meq ONCE ONE Administration Potassium Chloride 40 meq 11/18/24 08:31 11/18/24 09:08 Potassium Chloride 20 Meq Tab PO 11/18/24 08:32 40 meq ONCE ONE Administration Potassium Chloride 40 meq 11/19/24 08:24 11/19/24 09:02 Potassium Chloride 20 Meq Tab PO 11/19/24 08:25 40 meq ONCE ONE Administration Valacyclovir HCl 500 mg 11/16/24 09:00 11/18/24 09:09 Valacyclovir Hcl 500 Mg Tablet PO 500 mg TUTHSA BETTY Administration Vital Signs: Temp Pulse Resp BP Pulse Ox O2 Del Method 11/16/24 15:23 Room Air 11/16/24 14:26 Room Air 11/16/24 14:00 Room Air 11/16/24 13:00 Room Air 11/16/24 12:00 Room Air 11/16/24 11:00 Room Air 11/16/24 10:00 98.3 F 120 H 19 118/74 95 Room Air 11/16/24 09:48 Room Air 11/16/24 09:00 Room Air 11/16/24 08:00 Room Air 11/16/24 07:09 Room Air 11/16/24 07:00 Room Air 11/16/24 05:43 Room Air 11/16/24 05:02 98.9 F 129 H 18 129/82 95 Room Air 11/16/24 05:00 Room Air 11/16/24 03:54 Room Air 11/16/24 03:00 Room Air 11/16/24 02:00 119 H 18 Room Air 11/16/24 02:00 Room Air 11/16/24 01:00 Room Air 11/16/24 00:00 Room Air 11/15/24 23:00 Room Air 11/15/24 22:00 Room Air 11/15/24 21:14 98.8 F 124 H 16 119/72 95 Room Air 11/15/24 21:00 Room Air 11/15/24 19:47 18 Room Air 11/15/24 19:47 Room Air 11/15/24 19:00 Room Air 11/15/24 17:57 Room Air 11/15/24 17:57 98.2 F 123 H 20 135/84 98 Room Air 11/15/24 17:00 Room Air 11/15/24 16:00 Room Air 11/15/24 15:00 Room Air 11/15/24 14:00 Room Air 11/15/24 14:00 98.1 F 127 H 20 135/79 94 L Room Air 11/15/24 13:00 Room Air 11/15/24 12:10 98.9 F 128 H 20 96 11/15/24 12:00 Room Air 11/15/24 11:00 Room Air 11/15/24 10:00 98.9 F 128 H 20 133/84 96 Room Air 11/15/24 10:00 98.9 F 128 H 20 133/84 96 Room Air 11/15/24 10:00 Room Air 11/15/24 09:00 Room Air 11/15/24 08:00 Room Air 11/15/24 07:00 Room Air 11/15/24 06:21 18 Room Air 11/15/24 06:20 97.1 F L 121 H 22 H 146/82 H 96 Room Air 11/15/24 01:18 98.3 F 136 H 36 H 135/79 95 Discharge Plan Discharge Patient Disposition: ADMITTED INPATIENT Discharge Problem: UTI (urinary tract infection) Did you review [place] [employer] for ALL controlled substances?: Not Applicable ED Provider: ALIRIO BOX Condition: Stable
[2024-11-15] MEDS: POTASSIUM CHLORIDE 40 MEQ VIAL-ADDITIVE ONLY IV ONE (03:20)
[2024-11-15 04:13] LABS: BILIRUBIN,URINE Negative (NEGATIVE); CLARITY,URINE Slightly (CLEAR); COLOR,URINE Orange (YELLOW); GLUCOSE, URINE (UA) Trace (NEGATIVE); KETONES,URINE Negative (NEGATIVE); LEUKOCYTE ESTERASE ,URINE 1+ (NEGATIVE); NITRITE,URINE Positive (NEGATIVE); PH,URINE 6.5 (5-9); PROTEIN,URINE 2+ (NEGATIVE); URINE, BLOOD Trace-intact (NEGATIVE)
[2024-11-15 04:21] LABS: AMPHETAMINE SCREEN,URINE NEGATIVE (NEGATIVE); BARBITURATE SCREEN,URINE NEGATIVE (NEGATIVE); BENZODIAZEPINES SCREEN,URINE POSITIVE (NEGATIVE); CANNABINOID SCREEN,URINE NEGATIVE (NEGATIVE); COCAIN SCREEN,URINE NEGATIVE (NEGATIVE); METHADONE URINE SCREEN NEGATIVE (NEGATIVE); METHAMPHETAMINES SCREEN,URINE NEGATIVE (NEGATIVE); OPIATE SCREEN,URINE NEGATIVE (NEGATIVE); OXYCODONE URINE SCREEN NEGATIVE (NEGATIVE); PHENCYCLIDINE SCREEN,URINE NEGATIVE (NEGATIVE); TRICYCLIC ANTIDEPRESSANTS URIN NEGATIVE (NEGATIVE)
[2024-11-15 04:22] LABS: BACTERIA,URINE 1+ (NOT PRESENT)
[2024-11-15 05:41] LABS: VBG HCO3 19.2 (22-26); VBG OXYGEN SATURATION 99.7 (60-80); VBG PH 7.53 (7.30-7.40)
[2024-11-15 05:47] LABS: BLOOD UREA NITROGEN 8.1 mg/dL (7-17); CALCIUM 8.25 mg/dL (8.4-10.2); CARBON DIOXIDE 20.9 mmol/L (22-30.0); CHLORIDE 103.1 mmol/L (98-107); CREATININE 0.69 mg/dL (0.60-1.30); GLUCOSE 126.8 mg/dL (74-106); POTASSIUM 3.74 mmol/L (3.5-5.1); SODIUM 131.2 mmol/L (134.5-145)
[2024-11-15] MEDS ORDERED: ZOFRAN SDV IVP PRN (07:18)
[2024-11-15] MEDS: SODIUM CHLORIDE 1,000 ML IV SCH (09:00)
[2024-11-15] MEDS: ROCEPHIN 1 GM/50 ML D5W 1 GM/50 ML BAG IV SCH (09:11)
[2024-11-15] MEDS: ZITHROMAX 500 MG in SODIUM CHLORIDE 250 ML IV SCH (10:32)
--- NOTE | 2024-11-15 11:49 | PCM ---
Date of Service Date Seen by Provider: 11/15/24 Time Seen by Provider: 09:00 Admit Day/Time Admission Date: 11/15/24 Reason for Admission Chief Complaint: ALTERED MENTAL STATUS. PNA. UTI Hospital Provider Hospital Provider: [facility] Primary Care Physician Primary Care Physician: ANGELIA BAILEY History of Present Illness History of Present Illness: 49-year-old female with past medical history significant for bipolar disorder, chronic urinary tract infections on Macrobid 3 times weekly, hypothyroidism, past history of shingles with ocular herpes taking antiviral medication, history of a CVA in 2014 not on antiplatelet therapy, and a history of ALL in remission presented to the ER last night due to confusion as well as cough and shortness of breath. The patient is not able to give history of present illness and her at bedside gives much of the report. He states that she has a history of chronic urinary tract infections and when she began feeling ill and getting confused yesterday he wanted to bring her to the emergency room. In the emergency room she was noted to have a potassium of 2.7, urinary tract infection with positive nitrites and leukocyte esterase as well as a chest x-ray demonstrating left-sided pneumonia. The patient is not oriented to her baseline and will be admitted to the hospitalist service at this time. Case Discussed With Case Discussed With: Patient's case was discussed with the ER Physicians, Dr. RAGSDALE Medical History (Updated 11/15/24 @ 06:21 by HERO CARTAGENA RN) Thyroid condition E07.9 - Disorder of thyroid, unspecified (ICD-10) Hearing loss H91.90 - Unspecified hearing loss, unspecified ear (ICD-10) Surgical History (Updated 06/05/20 @ 08:51 by [place]) Status post myringotomy with insertion of tube Z96.22 - Myringotomy tube(s) status (ICD-10) Family History FATHER Diabetes Other Hearing loss Social History Smoking and tobacco status: Never smoker History of recent travel: No Allergies Allergies Allergy/AdvReac Type Severity Reaction Status Date / Time erythromycin lactobionate AdvReac Rash Verified 11/15/24 01:39 (From Erythrocin) haloperidol (From Haldol) AdvReac OPPOSITE Verified 11/15/24 01:39 EFFECT latex AdvReac Rash Verified 11/15/24 01:39 Penicillins AdvReac Difficulty Verified 11/15/24 01:39 Breathing Sulfa (Sulfonamide AdvReac Hives Verified 11/15/24 01:39 Antibiotics) tape AdvReac Rash Uncoded 11/15/24 01:39 Current Medications Home Medications Acetaminophen (Acetaminophen 325 Mg Tablet) 650 mg PO Q4H PRN PRN Reason: Mild Pain Sodium Chloride (Sodium Chloride) 1,000 mls @ 75 mls/hr IV .[id number] [facility] Last Admin: 11/15/24 09:00 Dose: 75 mls/hr CEFTRIAXONE/D5W 1 GM PREMIX (Rocephin 1 Gm/50 Ml D5w) 1 gm in 50 mls @ 100 mls/hr IV DAILY [facility] Stop: 11/18/24 08:59 Last Admin: 11/15/24 09:11 Dose: 100 mls/hr Azithromycin 500 mg/ Sodium (Chloride) 250 mls @ 250 mls/hr IV DAILY BETTY Stop: 11/18/24 08:59 Last Admin: 11/15/24 10:32 Dose: 250 mls/hr Ondansetron HCl (Ondansetron Hcl/Pf 4 Mg/2 Ml Sdv) 4 mg IVP Q6H PRN PRN Reason: Nausea / Vomiting levothyroxine 75 mcg tablet (Synthroid) 75 mcg PO DAILY 05/17/14 [History Confirmed 11/15/24] lamotrigine 100 mg tablet (Lamictal) 200 mg PO BEDTIME 06/27/14 [History Confirmed 11/15/24] levetiracetam 500 mg tablet 500 mg PO 1-2XD 01/26/16 [History Confirmed 11/15/24] lamotrigine 100 mg tablet (Lamictal) 150 mg PO QAM 12/09/19 [History Confirmed 11/15/24] valacyclovir 500 mg tablet (Valtrex) 500 mg PO TUTHSA 12/09/19 [History Confirmed 11/15/24] ergocalciferol (vitamin D2) 1,250 mcg (50,000 unit) capsule (Vitamin D2) 50,000 unit PO 2 TIMES PER WEEK 06/10/20 [History Confirmed 11/15/24] escitalopram oxalate 20 mg tablet (Lexapro) 20 mg PO DAILY 06/10/20 [History Confirmed 11/15/24] hydroxyzine HCl 25 mg tablet 25 mg PO BEDTIME PRN Anxiety 07/17/21 [History Confirmed 11/15/24] levocetirizine 5 mg tablet 5 mg PO DAILY 07/17/21 [History Confirmed 11/15/24] montelukast 10 mg tablet 10 mg PO DAILY 07/17/21 [History Confirmed 11/15/24] melatonin 10 mg capsule 10 mg PO BEDTIME 09/19/23 [History Confirmed 11/15/24] prednisolone acetate 1 % eye drops,suspension (Pred Forte) 1 drp RIGHTEYE DAILY 09/19/23 [History Confirmed 11/15/24] albuterol sulfate 90 mcg/actuation aerosol inhaler 2 inh inhalation Q4-6H PRN shortness of breath or wheezing 11/15/24 [History Confirmed 11/15/24] conj estrogen-medroxyprogesterone 0.625 mg-2.5 mg tablet (Prempro) 1 tab PO DAILY 11/15/24 [History Confirmed 11/15/24] escitalopram oxalate 5 mg tablet 5 mg PO DAILY 11/15/24 [History Confirmed 11/15/24] fluorometholone 0.1 % eye drops,suspension 1 drp ophthalmic (eye) DAILY 11/15/24 [History Confirmed 11/15/24] lorazepam 1 mg tablet 1 mg PO Q8H PRN anxiety 11/15/24 [History Confirmed 11/15/24] nitrofurantoin monohydrate/macrocrystals 100 mg capsule 100 mg PO MOWEFR 11/15/24 [History Confirmed 11/15/24] olanzapine 10 mg tablet (Zyprexa) 10 mg PO BEDTIME 11/15/24 [History Confirmed 11/15/24] Opioid Naive vs. Tolerant What is Opioid Naive?: *Opioid Naive implies the patient is not already taking opioids or not chronically receiving opioids on a daily basis. *PRN dosing is not "usually" associated with tolerance. *Patients are at higher risk of over-sedation and aspiration. What is Opioid Tolerant?: *Opioid Tolerance implies less than the expected response to an opioid. *Acquired tolerance is defined by the patient taking 60mg of oral morphine daily (or equianalgesic dose of another opioid) for 1 week or more. *Often associated with chronic pain. *May take more than usual dose to achieve desired pain control. Review of Systems Constitutional: Reports No symptoms (Unable to perform review of systems due to patient's mentation) Physical examination Most Recent Vital Signs: Most Recent Vital Signs Temperature 98.9 F 11/15/24 10:00 Temperature Source Temporal Artery Scan 11/15/24 10:00 Temperature Source Temporal Artery Scan 11/15/24 01:18 Pulse Rate 128 H 11/15/24 10:00 Respiratory Rate 20 11/15/24 10:00 Blood Pressure 133/84 11/15/24 10:00 Blood Pressure Mean 100 11/15/24 10:00 Blood Pressure Location Left Arm 11/15/24 10:00 Blood Pressure Position Supine 11/15/24 10:00 O2 Sat by Pulse Oximetry 96 11/15/24 10:00 Oxygen Delivery Method Room Air 11/15/24 11:00 Height 5 ft 7 in 11/15/24 01:18 Weight 97.1 kg 11/15/24 01:18 Telemetry Type Remote Telemetry 11/15/24 07:00 Telemetry Monitoring Continues 11/15/24 07:00 Telemetry Heart Rate 115 H 11/15/24 07:00 Telemetry SPO2 100 07/06/17 19:00 EKG [place] Interval 0.15 11/15/24 07:00 EKG QRS Interval 0.08 11/15/24 07:00 Telemetry Strip Reading Sinus tachycardia 11/15/24 07:00 Appearance: Positive Well-appearing and Well-nourished Skin: Negative Rashes HEENT: Positive Normocephalic Chest/Lungs: Positive Rales and Good Air Movement all 4 Lung [place] Heart: Positive RRR (Sinus tachycardia) GI/: Positive Soft and Nontender Psychiatric: Positive Oriented x4 (Oriented x 1) and Appropriate Affect Labs This Visit Labs This Visit: Labs This Visit 11/15/24 11/15/24 11/15/24 01:40 02:09 02:20 WBC 6.07 RBC 3.46 L Hgb 12.3 Hct 35.1 L MCV 101.4 H MCH 35.5 H MCHC 35.0 RDW Coeff of Harpreet 14.7 Plt Count 129 L Immature Gran % (Auto) 0.2 Neut % (Auto) 73.0 Lymph % (Auto) 18.3 [place] % (Auto) 5.3 Eos % (Auto) 3.0 Baso % (Auto) 0.2 Neut # (Auto) 4.4 Lymph # (Auto) 1.1 [place] # (Auto) 0.3 L Eos # (Auto) 0.2 Baso # (Auto) 0.0 Immature Gran # (Auto) 0.0 PT 10.9 INR 1.05 APTT 28.8 VBG pH VBG pCO2 VBG pO2 VBG HCO3 VBG O2 Saturation Sodium 127.7 L Potassium 2.75 L* Chloride 95.6 L Carbon Dioxide 21.2 L Anion Gap 13.65 BUN 9.7 Creatinine 0.70 Estimated GFR (MDRD) 89.00 BUN/Creatinine Ratio 13.85 Glucose 128.0 H Calcium 8.60 Magnesium 1.73 Total Bilirubin 0.91 AST 30.8 ALT 17.4 Alkaline Phosphatase 126.2 H Ammonia 9.2 Troponin I < 0.012 NT-Pro-B Natriuret Pep 62 Total Protein 5.96 L Albumin 3.92 Globulin 2.04 Albumin/Globulin Ratio 1.92 Urine Color Urine Clarity Urine pH Ur Specific [place] Urine Protein Urine Glucose (UA) Urine Ketones Urine Blood Urine Nitrite Urine Bilirubin Urine Urobilinogen Ur Leukocyte Esterase Urine Microscopic RBC Urine Microscopic WBC Ur Squamous Epith Cells Urine Bacteria Urine Opiates Screen Ur Oxycodone Screen Urine Methadone Screen Ur Barbiturates Screen U Tricyclic Antidepress Ur Phencyclidine Scrn Ur Amphetamine Screen U Methamphetamines Scrn U Benzodiazepines Scrn Urine Cocaine Screen U Cannabinoids Screen Plasma/Serum Alcohol < 10.0 Influ A Molecular Assay Negative by naat Influ B Molecular Assay Negative by naat RSV Antigen Negative by naat SARS CoV-2 RNA Rapid HIEU Negative 11/15/24 11/15/24 11/15/24 03:40 05:29 05:36 WBC RBC Hgb Hct MCV MCH MCHC RDW Coeff of Harpreet Plt Count Immature Gran % (Auto) Neut % (Auto) Lymph % (Auto) [place] % (Auto) Eos % (Auto) Baso % (Auto) Neut # (Auto) Lymph # (Auto) [place] # (Auto) Eos # (Auto) Baso # (Auto) Immature Gran # (Auto) PT INR APTT VBG pH 7.53 H VBG pCO2 23 L VBG pO2 181 H VBG HCO3 19.2 L VBG O2 Saturation 99.7 H Sodium 131.2 L Potassium 3.74 Chloride 103.1 Carbon Dioxide 20.9 L Anion Gap 10.94 BUN 8.1 Creatinine 0.69 Estimated GFR (MDRD) 90.00 BUN/Creatinine Ratio 11.73 Glucose 126.8 H Calcium 8.25 L Magnesium Total Bilirubin AST ALT Alkaline Phosphatase Ammonia Troponin I NT-Pro-B Natriuret Pep Total Protein Albumin Globulin Albumin/Globulin Ratio Urine Color Bessie Urine Clarity Slightly Urine pH 6.5 Ur Specific [place] [employer] 1.015 Urine Protein 2+ H Urine Glucose (UA) Trace H Urine Ketones Negative Urine Blood Trace-intact H Urine Nitrite Positive H Urine Bilirubin Negative Urine Urobilinogen 1.0 H Ur Leukocyte Esterase 1+ H Urine Microscopic RBC 2-5 Urine Microscopic WBC 10-20 Ur Squamous Epith Cells 10-20 Urine Bacteria 1+ Urine Opiates Screen Negative Ur Oxycodone Screen Negative Urine Methadone Screen Negative Ur Barbiturates Screen Negative U Tricyclic Antidepress Negative Ur Phencyclidine Scrn Negative Ur Amphetamine Screen Negative U Methamphetamines Scrn Negative U Benzodiazepines Scrn Positive H Urine Cocaine Screen Negative U Cannabinoids Screen Negative Plasma/Serum Alcohol Influ A Molecular Assay Influ B Molecular Assay RSV Antigen SARS CoV-2 RNA Rapid HIEU Review Statement Review Statement: I have independently reviewed and interpreted the labs/EKGs/imaging that were ordered by the ER provider. I have reviewed all outside records that are available currently in our EMR including imaging/notes/labs from previous visits. Plan Plan: Metabolic encephalopathy Likely due to urinary tract infection/hypokalemia/left lower lobe pneumonia Continue antibiotics CT head negative overnight Blood cultures pending Speech therapy evaluation Urinary tract infection Continue Rocephin Follow urine culture Left lobe pneumonia Pneumococcal and Legionella antigen ordered and will follow Blood cultures ordered Continue azithromycin RT consult as necessary Hypokalemia Replaced Monitor with daily labs Bipolar disorder Continue home medications Hypothyroidism Continue Synthroid History of shingles and ocular herpes zoster Continue eyedrops and Valtrex History of ALL Not currently receiving chemotherapy In remission per patient's DVT Prophylaxis: Time Spent: Greater than 80 minutes spent with patient, 50% of the time spent with this patient was devoted to counseling and coordination of care. Disposition: Admit to hospital Admit to: Amie Mendoza PA-C Medications Medication Orders: Medications Ordered Category Date Time Status Acetaminophen [Tylenol] Meds 11/15/24 07:14 Active 650 mg PO Q4H PRN Azithromycin Inj [Zithromax] 500 mg Meds 11/15/24 11:00 Active 0.9 % Sodium Chloride [Sodium Chloride] 250 ml IV DAILY Ceftriaxone/D5w 1 gm Premix [Rocephin 1 gm/50 ml D5w] Meds 11/15/24 09:00 Active 1 gm in 50 ml IV DAILY Ondansetron HCl/Pf [Zofran Sdv] Meds 11/15/24 07:18 Active 4 mg IVP Q6H PRN Sodium Chloride 0.9% [Sodium Chloride] 1,000 ml Meds 11/15/24 07:30 Active IV 75 mls/hr
[2024-11-15] MEDS ORDERED: NON-FORMULARY MEDICATION (Escitalopram Oxalate 5 mg tablet) PO SCH (13:15)
[2024-11-15] MEDS: ATIVAN IVP ONE (13:39)
[2024-11-15] MEDS: LEXAPRO PO SCH (13:42)
[2024-11-15] MEDS: DRISDOL PO SCH (13:43)
[2024-11-15] MEDS: LAMICTAL PO SCH ×2 (13:43→20:08)
[2024-11-15] MEDS: MELATONIN PO SCH (20:08)
[2024-11-15] MEDS: ZYPREXA PO SCH (20:08)
[2024-11-15] MEDS: ATIVAN IVP PRN (20:12)
[2024-11-15] MEDS ORDERED: NON-FORMULARY MEDICATION (Melatonin 10 mg capsule) PO SCH (21:00)
[2024-11-16 05:51] LABS: BASOPHILS % (AUTO) 0.2 % (0.0-3.0); EOSINOPHILS # (AUTO) 0.2 K/ul (0.0-0.7); HEMATOCRIT 31.8 % (37.0-47.0); HEMOGLOBIN 10.9 g/dl (12.0-16.0); IMMATURE GRANULOCYTE % (AUTO) 0.2 % (0.0-5.0); LYMPHOCYTES # (AUTO) 1.5 K/uL (0.60-3.4); LYMPHOCYTES % (AUTO) 27.6 (10.0-50.0); MEAN CORPUSCULAR HEMOGLOBIN 36.5 pg (27.0-31.0); MEAN CORPUSCULAR HGB CONC 34.3 (31.8-35.4); MONOCYTES # (AUTO) 0.6 K/uL (0.4-2.0); MONOCYTES % (AUTO) 11.4 (0-10); NEUTROPHILS % (AUTO) 56.6 % (42.2-75.2); PLATELET COUNT 141 10^3/uL (140-440); RDW COEFFICIENT OF VARIATION 15.7 % (11.6-14.8); RED BLOOD COUNT 2.99 10^6/ul (4.20-5.40); WHITE BLOOD COUNT 5.25 K/ul (4.6-10.2)
[2024-11-16 06:00] LABS: MEAN CORPUSCULAR VOLUME 106.4 fl (81.0-99.0)
[2024-11-16 06:03] LABS: ALANINE AMINOTRANSFERASE 15.8 U/L (0-35); ALBUMIN 2.97 g/dL (3.5-5.0); ALKALINE PHOSPHATASE 101.9 U/L (38-126); BILIRUBIN,TOTAL 0.33 mg/dL (0.2-1.3); BLOOD UREA NITROGEN 6.2 mg/dL (7-17); CALCIUM 8.26 mg/dL (8.4-10.2); CARBON DIOXIDE 27.8 mmol/L (22-30.0); CREATININE 0.68 mg/dL (0.60-1.30); GLUCOSE 95.9 mg/dL (74-106); POTASSIUM 3.61 mmol/L (3.5-5.1); SODIUM 139.8 mmol/L (134.5-145); TOTAL PROTEIN 4.95 g/dL (6.3-8.2)
[2024-11-16] MEDS: SYNTHROID PO SCH (06:22)
[2024-11-16] MEDS: VALTREX PO SCH (10:41)
--- NOTE | 2024-11-16 14:15 | PCM.PROG ---
Date/Time Seen Date Seen by Provider: 11/16/24 Time Seen by Provider: 08:40 Provider Provider: ESTEPHANIE PLUNKETT [facility]C, [facility] Chief Complaint Chief Complaint: ALTERED MENTAL STATUS. PNA. UTI Subjective Subjective: Patient required IV ativan last night due to agitation. She is still altered this morning. Unable to answer questions appropriately. at nurses station around 1400 feels patient is improved today compared to yesterday. Objective Appearance: Positive No Apparent Distress Chest/Lungs: Positive Rhonci (obdulia) Heart: Positive RRR GI/: Positive Soft, Nontender, Bowel Sounds Normal and No Distention Additional Findings: Unable to fully assess neuro or psychiatric status due to being altered. Vital Signs Vital Signs: Vital Signs: Last 24 Hours 11/15/24 15:00 11/15/24 16:00 11/15/24 17:00 Temperature Temperature Source Pulse Rate Respiratory Rate Blood Pressure Blood Pressure Mean Blood Pressure Location Blood Pressure Position O2 Sat by Pulse Oximetry Oxygen Delivery Method Room Air Room Air Room Air Telemetry Type Telemetry Monitoring Telemetry Heart Rate EKG MO Interval EKG QRS Interval Telemetry Strip Reading 11/15/24 17:57 11/15/24 17:57 11/15/24 19:00 Temperature 98.2 F Temperature Source Temporal Artery Scan Pulse Rate 123 H Respiratory Rate 20 Blood Pressure 135/84 Blood Pressure Mean 101 Blood Pressure Location Left Arm Blood Pressure Position Supine O2 Sat by Pulse Oximetry 98 Oxygen Delivery Method Room Air Room Air Room Air Telemetry Type Telemetry Monitoring Telemetry Heart Rate EKG MO Interval EKG QRS Interval Telemetry Strip Reading 11/15/24 19:00 11/15/24 19:47 11/15/24 19:47 Temperature Temperature Source Pulse Rate Respiratory Rate 18 Blood Pressure Blood Pressure Mean Blood Pressure Location Blood Pressure Position O2 Sat by Pulse Oximetry Oxygen Delivery Method Room Air Room Air Telemetry Type Remote Telemetry Telemetry Monitoring Continues Telemetry Heart Rate 127 H EKG MO Interval 0.19 EKG QRS Interval 0.05 L Telemetry Strip Reading ST 11/15/24 21:00 11/15/24 21:14 11/15/24 22:00 Temperature 98.8 F Temperature Source Temporal Artery Scan Pulse Rate 124 H Respiratory Rate 16 Blood Pressure 119/72 Blood Pressure Mean 87 Blood Pressure Location Left Arm Blood Pressure Position Supine O2 Sat by Pulse Oximetry 95 Oxygen Delivery Method Room Air Room Air Room Air Telemetry Type Telemetry Monitoring Telemetry Heart Rate EKG MO Interval EKG QRS Interval Telemetry Strip Reading 11/15/24 23:00 11/16/24 00:00 11/16/24 01:00 Temperature Temperature Source Pulse Rate Respiratory Rate Blood Pressure Blood Pressure Mean Blood Pressure Location Blood Pressure Position O2 Sat by Pulse Oximetry Oxygen Delivery Method Room Air Room Air Telemetry Type Remote Telemetry Telemetry Monitoring Continues Telemetry Heart Rate 117 H EKG MO Interval 0.19 EKG QRS Interval 0.[address] 11/16/24 01:00 11/16/24 02:00 11/16/24 02:00 Temperature Temperature Source Pulse Rate 119 H Respiratory Rate 18 Blood Pressure Blood Pressure Mean Blood Pressure Location Blood Pressure Position O2 Sat by Pulse Oximetry Oxygen Delivery Method Room Air Room Air Room Air Telemetry Type Telemetry Monitoring Telemetry Heart Rate EKG MO Interval EKG QRS Interval Telemetry Strip Reading 11/16/24 03:00 11/16/24 03:54 11/16/24 05:00 Temperature Temperature Source Pulse Rate Respiratory Rate Blood Pressure Blood Pressure Mean Blood Pressure Location Blood Pressure Position O2 Sat by Pulse Oximetry Oxygen Delivery Method Room Air Room Air Room Air Telemetry Type Telemetry Monitoring Telemetry Heart Rate EKG MO Interval EKG QRS Interval Telemetry Strip Reading 11/16/24 05:02 11/16/24 05:43 11/16/24 07:00 Temperature 98.9 F Temperature Source Temporal Artery Scan Pulse Rate 129 H Respiratory Rate 18 Blood Pressure 129/82 Blood Pressure Mean 97 Blood Pressure Location Left Arm Blood Pressure Position Supine O2 Sat by Pulse Oximetry 95 Oxygen Delivery Method Room Air Room Air Room Air Telemetry Type Telemetry Monitoring Telemetry Heart Rate EKG MO Interval EKG QRS Interval Telemetry Strip Reading 11/16/24 07:00 11/16/24 07:09 11/16/24 08:00 Temperature Temperature Source Pulse Rate Respiratory Rate Blood Pressure Blood Pressure Mean Blood Pressure Location Blood Pressure Position O2 Sat by Pulse Oximetry Oxygen Delivery Method Room Air Room Air Telemetry Type Remote Telemetry Telemetry Monitoring Continues Telemetry Heart Rate 120 H EKG MO Interval 0.16 EKG QRS Interval 0.[address] 11/16/24 09:00 11/16/24 09:48 11/16/24 10:00 Temperature 98.3 F Temperature Source Temporal Artery Scan Pulse Rate 120 H Respiratory Rate 19 Blood Pressure 118/74 Blood Pressure Mean 88 Blood Pressure Location Left Arm Blood Pressure Position Sitting O2 Sat by Pulse Oximetry 95 Oxygen Delivery Method Room Air Room Air Room Air Telemetry Type Telemetry Monitoring Telemetry Heart Rate EKG MO Interval EKG QRS Interval Telemetry Strip Reading 11/16/24 11:00 11/16/24 12:00 11/16/24 13:00 Temperature Temperature Source Pulse Rate Respiratory Rate Blood Pressure Blood Pressure Mean Blood Pressure Location Blood Pressure Position O2 Sat by Pulse Oximetry Oxygen Delivery Method Room Air Room Air Telemetry Type Remote Telemetry Telemetry Monitoring Continues Telemetry Heart Rate 116 H EKG MO Interval 0.18 EKG QRS Interval 0.[address] 11/16/24 13:00 Temperature Temperature Source Pulse Rate Respiratory Rate Blood Pressure Blood Pressure Mean Blood Pressure Location Blood Pressure Position O2 Sat by Pulse Oximetry Oxygen Delivery Method Room Air Telemetry Type Telemetry Monitoring Telemetry Heart Rate EKG MO Interval EKG QRS Interval Telemetry Strip Reading Lab Results Lab Results: Lab Results: Last 24 Hours 11/16/24 05:07 WBC 5.25 RBC 2.99 L Hgb 10.9 L Hct 31.8 L MCV 106.4 H D MCH 36.5 H MCHC 34.3 RDW Coeff of Harpreet 15.7 H Plt Count 141 Immature Gran % (Auto) 0.2 Neut % (Auto) 56.6 Lymph % (Auto) 27.6 [place] % (Auto) 11.4 H Eos % (Auto) 4.0 Baso % (Auto) 0.2 Neut # (Auto) 3.0 Lymph # (Auto) 1.5 [place] # (Auto) 0.6 Eos # (Auto) 0.2 Baso # (Auto) 0.0 Immature Gran # (Auto) 0.0 Sodium 139.8 Potassium 3.61 Chloride 108.0 H Carbon Dioxide 27.8 Anion Gap 7.61 BUN 6.2 L Creatinine 0.68 Estimated GFR (MDRD) 92.00 BUN/Creatinine Ratio 9.11 Glucose 95.9 Calcium 8.26 L Total Bilirubin 0.33 AST 41.0 H ALT 15.8 Alkaline Phosphatase 101.9 Total Protein 4.95 L Albumin 2.97 L Globulin 1.98 Albumin/Globulin Ratio 1.50 Additional Comments Additional Comments: I have independently reviewed and interpreted the labs/EKGs/imaging ordered during this hospital stay. I have reviewed outside records that are available in our EMR that pertain to medical stay including imaging/notes/labs from previous visits. Active Medications Active Medications: Medications Generic Name Dose Route Start Last Admin Trade Name Freq PRN Reason Stop Dose Admin Acetaminophen 650 mg 11/15/24 07:14 Acetaminophen 325 Mg Tablet PO Q4H PRN Mild Pain Ergocalciferol 50,000 unit 11/15/24 13:30 11/15/24 13:43 Ergocalciferol (Vitamin D2) 50,000 Unit Capsule PO 50,000 unit [id number]@[id number] BETTY Administration Escitalopram Oxalate 5 mg 11/15/24 13:30 11/16/24 10:40 Escitalopram Oxalate 10 Mg Tablet PO 5 mg DAILY BETTY Administration Sodium Chloride 1,000 mls @ 75 mls/hr 11/15/24 07:30 11/16/24 13:22 Sodium Chloride IV 75 mls/hr .[id number] BETTY Administration CEFTRIAXONE/D5W 1 GM PREMIX 1 gm in 50 mls @ 100 mls/hr 11/15/24 09:00 11/16/24 08:13 Rocephin 1 Gm/50 Ml D5w IV 11/18/24 08:59 100 mls/hr DAILY BETTY Administration Azithromycin 500 mg/ Sodium 250 mls @ 250 mls/hr 11/15/24 11:00 11/16/24 09:00 Chloride IV 11/18/24 08:59 250 mls/hr DAILY BETTY Administration Lamotrigine 150 mg 11/15/24 13:15 11/16/24 10:42 Lamotrigine 25 Mg Tablet PO 150 mg QAM BETTY Administration Lamotrigine 200 mg 11/15/24 21:00 11/15/24 20:08 Lamotrigine 25 Mg Tablet PO Not Given BEDTIME BETTY Levothyroxine Sodium 75 mcg 11/16/24 06:00 11/16/24 06:22 Levothyroxine Sodium 75 Mcg Tablet PO Not Given QDAC2 BETTY Lorazepam 3 mg 11/15/24 18:28 11/15/24 20:12 Lorazepam Inj 2 Mg/Ml Vial IVP 3 mg ONCE PRN Administration Agitation Melatonin 9 mg 11/15/24 21:00 11/15/24 20:08 Melatonin 3 Mg Tablet PO Not Given BEDTIME BETTY Olanzapine 10 mg 11/15/24 21:00 11/15/24 20:08 Olanzapine 10 Mg Tablet PO Not Given BEDTIME BETTY Ondansetron HCl 4 mg 11/15/24 07:18 Ondansetron Hcl/Pf 4 Mg/2 Ml Sdv IVP Q6H PRN Nausea / Vomiting Valacyclovir HCl 500 mg 11/16/24 09:00 11/16/24 10:41 Valacyclovir Hcl 500 Mg Tablet PO 500 mg TUTHSA BETTY Administration Plan Plan: Acute Metabolic encephalopathy Likely due to urinary tract infection/hypokalemia/left lower lobe pneumonia Continue antibiotics CT head negative overnight Blood cultures pending Speech therapy evaluation Urinary tract infection Continue Rocephin Follow urine culture Left lobe pneumonia Pneumococcal and Legionella antigen ordered and will follow Blood cultures ordered Continue azithromycin/rocephin RT consult as necessary Hypokalemia Resolved Bipolar disorder Continue home medications Hypothyroidism Continue Synthroid History of shingles and ocular herpes zoster Continue eyedrops and Valtrex History of ALL Not currently receiving chemotherapy In remission per patient's DVT: lovenox Review Statement Review Statement: I have personally discussed and reviewed the patient's visit/currently labs/imaging/decision making with Dr. Franco, my supervising attending. Greater that 50 minutes spent with patient, 50% of the time spent with this patient was devoted to counseling and coordination of care.
[2024-11-16] MEDS: ATIVAN IVP PRN (16:48)
[2024-11-16] MEDS ORDERED: ZYPREXA IM PRN ×2 (18:30→21:49)
[2024-11-17] MEDS: XOPENEX 1.25 MG NEB PRN (05:14)
[2024-11-17 05:35] LABS: BASOPHILS % (AUTO) 0.2 % (0.0-3.0); EOSINOPHILS # (AUTO) 0.3 K/ul (0.0-0.7); EOSINOPHILS % (AUTO) 5.6 % (0.0-7.0); HEMATOCRIT 31.9 % (37.0-47.0); HEMOGLOBIN 10.7 g/dl (12.0-16.0); IMMATURE GRANULOCYTE % (AUTO) 0.4 % (0.0-5.0); LYMPHOCYTES # (AUTO) 1.3 K/uL (0.60-3.4); MEAN CORPUSCULAR HEMOGLOBIN 35.8 pg (27.0-31.0); MEAN CORPUSCULAR HGB CONC 33.5 (31.8-35.4); MEAN CORPUSCULAR VOLUME 106.7 fl (81.0-99.0); MONOCYTES # (AUTO) 0.4 K/uL (0.4-2.0); MONOCYTES % (AUTO) 7.3 (0-10); NEUTROPHILS # (AUTO) 3.2 K/ul (2.0-6.9); NEUTROPHILS % (AUTO) 61.5 % (42.2-75.2); PLATELET COUNT 147 10^3/uL (140-440); RDW COEFFICIENT OF VARIATION 15.6 % (11.6-14.8); RED BLOOD COUNT 2.99 10^6/ul (4.20-5.40); WHITE BLOOD COUNT 5.21 K/ul (4.6-10.2)
[2024-11-17 05:49] LABS: ALANINE AMINOTRANSFERASE 16.5 U/L (0-35); ALBUMIN 3.09 g/dL (3.5-5.0); ALKALINE PHOSPHATASE 102.8 U/L (38-126); ASPARTATE AMINO TRANSFERASE 42.5 U/L (14-36); BILIRUBIN,TOTAL 0.33 mg/dL (0.2-1.3); BLOOD UREA NITROGEN 7.2 mg/dL (7-17); CALCIUM 8.58 mg/dL (8.4-10.2); CARBON DIOXIDE 24.5 mmol/L (22-30.0); CHLORIDE 110.2 mmol/L (98-107); CREATININE 0.66 mg/dL (0.60-1.30); GLUCOSE 94.6 mg/dL (74-106); POTASSIUM 3.66 mmol/L (3.5-5.1); SODIUM 140.8 mmol/L (134.5-145); TOTAL PROTEIN 5.14 g/dL (6.3-8.2)
--- NOTE | 2024-11-17 12:33 | PCM.PROG ---
Date/Time Seen Date Seen by Provider: 11/17/24 Time Seen by Provider: 09:10 Provider Provider: ESTEPHANIE PLUNKETT [facility]-C[facility] Chief Complaint Chief Complaint: ALTERED MENTAL STATUS. PNA. UTI Subjective Subjective: Patient is more alert today and answering questions appropriately. She was walking hallways with therapy. Continues to be tachycardic despite fluids. Objective Appearance: Positive No Apparent Distress Chest/Lungs: Positive Rhonci (obdulia) Heart: Positive RRR GI/: Positive Soft, Nontender, Bowel Sounds Normal and No Distention Neurological: Positive Cranial Nerves Intact, Alert and Oriented Vital Signs Vital Signs: Vital Signs: Last 24 Hours 11/16/24 13:00 11/16/24 13:00 11/16/24 14:00 Temperature Temperature Source Pulse Rate Pulse Rate [Apical] Respiratory Rate Blood Pressure Blood Pressure Mean Blood Pressure Location Blood Pressure Position O2 Sat by Pulse Oximetry Oxygen Delivery Method Room Air Room Air Telemetry Type Remote Telemetry Telemetry Monitoring Continues Telemetry Heart Rate 116 H EKG AL Interval 0.18 EKG QRS Interval 0.[address] 11/16/24 14:26 11/16/24 15:23 11/16/24 17:56 Temperature 98.2 F Temperature Source Temporal Artery Scan Pulse Rate 119 H Pulse Rate [Apical] Respiratory Rate 18 Blood Pressure 117/79 Blood Pressure Mean 91 Blood Pressure Location Right Arm Blood Pressure Position Sitting O2 Sat by Pulse Oximetry 97 Oxygen Delivery Method Room Air Room Air Room Air Telemetry Type Telemetry Monitoring Telemetry Heart Rate EKG AL Interval EKG QRS Interval Telemetry Strip [place] 11/16/24 19:00 11/16/24 20:00 11/16/24 21:49 Temperature 99.2 F Temperature Source Temporal Artery Scan Pulse Rate 125 H Pulse Rate [Apical] Respiratory Rate 33 H Blood Pressure 135/80 Blood Pressure Mean 98 Blood Pressure Location Left Arm Blood Pressure Position Sitting O2 Sat by Pulse Oximetry 94 L Oxygen Delivery Method Room Air Room Air Telemetry Type Remote Telemetry Telemetry Monitoring Continues Telemetry Heart Rate 112 H EKG AL Interval 0.23 H EKG QRS Interval 0.[address] WITH 1ST DEGREE AV BLOCK 11/17/24 02:00 11/17/24 05:05 11/17/24 07:00 Temperature 97.9 F 97.1 F L Temperature Source Temporal Artery Scan Temporal Artery Scan Pulse Rate 91 106 H Pulse Rate [Apical] Respiratory Rate 22 H 18 Blood Pressure 135/68 118/80 Blood Pressure Mean 90 92 Blood Pressure Location Left Arm Left Arm Blood Pressure Position Sitting Supine O2 Sat by Pulse Oximetry 91 L 91 L Oxygen Delivery Method Room Air Room Air Telemetry Type Remote Telemetry Telemetry Monitoring Continues Telemetry Heart Rate 103 H EKG AL Interval 0.20 EKG QRS Interval 0.10 Telemetry Strip [place] Sinus Tachycardia 11/17/24 08:00 11/17/24 10:00 Temperature 97.9 F Temperature Source Temporal Artery Scan Pulse Rate 112 H Pulse Rate [Apical] 112 H Respiratory Rate 18 16 Blood Pressure 105/71 Blood Pressure Mean 82 Blood Pressure Location Left Arm Blood Pressure Position O2 Sat by Pulse Oximetry 95 Oxygen Delivery Method Room Air Room Air Telemetry Type Telemetry Monitoring Telemetry Heart Rate EKG AL Interval EKG QRS Interval Telemetry Strip Reading Lab Results Lab Results: Lab Results: Last 24 Hours 11/17/24 05:22 WBC 5.21 RBC 2.99 L Hgb 10.7 L Hct 31.9 L MCV 106.7 H MCH 35.8 H MCHC 33.5 RDW Coeff of Harpreet 15.6 H Plt Count 147 Immature Gran % (Auto) 0.4 Neut % (Auto) 61.5 Lymph % (Auto) 25.0 [place] % (Auto) 7.3 Eos % (Auto) 5.6 Baso % (Auto) 0.2 Neut # (Auto) 3.2 Lymph # (Auto) 1.3 [place] # (Auto) 0.4 Eos # (Auto) 0.3 Baso # (Auto) 0.0 Immature Gran # (Auto) 0.0 Sodium 140.8 Potassium 3.66 Chloride 110.2 H Carbon Dioxide 24.5 Anion Gap 9.76 BUN 7.2 Creatinine 0.66 Estimated GFR (MDRD) 95.00 BUN/Creatinine Ratio 10.90 Glucose 94.6 Calcium 8.58 Total Bilirubin 0.33 AST 42.5 H ALT 16.5 Alkaline Phosphatase 102.8 Total Protein 5.14 L Albumin 3.09 L Globulin 2.05 Albumin/Globulin Ratio 1.50 Additional Comments Additional Comments: I have independently reviewed and interpreted the labs/EKGs/imaging ordered during this hospital stay. I have reviewed outside records that are available in our EMR that pertain to medical stay including imaging/notes/labs from previous visits. Active Medications Active Medications: Medications Generic Name Dose Route Start Last Admin Trade Name Freq PRN Reason Stop Dose Admin Acetaminophen 650 mg 11/15/24 07:14 Acetaminophen 325 Mg Tablet PO Q4H PRN Mild Pain Ergocalciferol 50,000 unit 11/15/24 13:30 11/15/24 13:43 Ergocalciferol (Vitamin D2) 50,000 Unit Capsule PO 50,000 unit MoFr@0900 BETTY Administration Escitalopram Oxalate 5 mg 11/15/24 13:30 11/17/24 09:19 Escitalopram Oxalate 10 Mg Tablet PO 5 mg DAILY BETTY Administration Sodium Chloride 1,000 mls @ 75 mls/hr 11/15/24 07:30 11/17/24 02:56 Sodium Chloride IV 75 mls/hr .[id number] BETTY Administration CEFTRIAXONE/D5W 1 GM PREMIX 1 gm in 50 mls @ 100 mls/hr 11/15/24 09:00 11/17/24 09:19 Rocephin 1 Gm/50 Ml D5w IV 11/18/24 08:59 100 mls/hr DAILY BETTY Administration Azithromycin 500 mg/ Sodium 250 mls @ 250 mls/hr 11/15/24 11:00 11/17/24 10:34 Chloride IV 11/18/24 08:59 250 mls/hr DAILY BETTY Administration Lamotrigine 150 mg 11/15/24 13:15 11/17/24 09:19 Lamotrigine 25 Mg Tablet PO 150 mg QAM BETTY Administration Lamotrigine 200 mg 11/15/24 21:00 11/16/24 20:46 Lamotrigine 25 Mg Tablet PO 200 mg BEDTIME BETTY Administration Levalbuterol HCl 1.25 mg 11/16/24 21:30 11/17/24 05:14 Levalbuterol Hcl 1.25 Mg/3 Ml Vial.Neb NEB 1.25 mg RTQ6H PRN Administration Wheezing Levothyroxine Sodium 75 mcg 11/16/24 06:00 11/17/24 05:10 Levothyroxine Sodium 75 Mcg Tablet PO 75 mcg QDAC2 BETTY Administration Lorazepam 1 mg 11/16/24 14:17 11/16/24 23:07 Lorazepam Inj 2 Mg/Ml Vial IVP 1 mg Q6HR PRN Administration Agitation Melatonin 9 mg 11/15/24 21:00 11/16/24 20:45 Melatonin 3 Mg Tablet PO 9 mg BEDTIME BETTY Administration Olanzapine 10 mg 11/15/24 21:00 11/16/24 20:45 Olanzapine 10 Mg Tablet PO 10 mg BEDTIME BETTY Administration Olanzapine 5 mg 11/16/24 21:49 Olanzapine 10 Mg Vial IM Q6HR PRN Agitation Ondansetron HCl 4 mg 11/15/24 07:18 Ondansetron Hcl/Pf 4 Mg/2 Ml Sdv IVP Q6H PRN Nausea / Vomiting Valacyclovir HCl 500 mg 11/16/24 09:00 11/16/24 10:41 Valacyclovir Hcl 500 Mg Tablet PO 500 mg TUTHSA BETTY Administration Plan Plan: Acute Metabolic encephalopathy Improved. 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 CTA to r/o PE. DVT: lovenox Dispo: possible discharge tomorrow Review Statement Review Statement: I have personally discussed and reviewed the patient's visit/currently labs/imaging/decision making with Dr. Franco, my supervising attending. Greater that 50 minutes spent with patient, 50% of the time spent with this patient was devoted to counseling and coordination of care.
--- NOTE | 2024-11-17 13:20 | RS.SP/LANG ---
Subjective Date of Evaluation: 11/17/24 Diagnosis: UTI, altered mental staus Prior Level of Function.....Patient was independent with: ADL's, Self Care, Caregiving and Ambulation/Mobility Current Level of Function: Patient is currently hospitalized for a UTI and altered mental status. Current Diet: regular Current Subjective/complaints:: Patient referred for a speech evaluation due to admission to the hospital with an altered mental status. Information Informal Assessment:: The SLUMS examination was used during the evaluation. The entire test was not administered due to her inability to answer questions or focus on a subject. Portions of the test and informal assessment were utilized to perform the evaluation. Inga is oriented to self and place. She knows her name, age, who her is and that she is at the hospital. She was able to recall some recent events, however she was confused about timelines and when things occurred. She is very [place] and has hearing aides. She does read lips well when she is attentive to the speaker and also uses some sign language to communicate with her verbal responses. She continues to be confused about the situation and what is going on around her. She cannot recall faces or names of those taking care of her. Her safety awareness is poor and problem solving of functional tasks. Her short term memory is overall poor. She does not focus on conversation enough to recall what is said to her. Analysis:: Inga's overall cognition is impaired causing confusion and agitation at times. This confusion also affects her safety awareness in her surroundings. Summary and Recommendations:: Speech therapy is recommended to focus on cognitive skills and safety awareness while she is in the hospital. Short Term Goals Goal #1: Improve orientation to person, place, time and situation. Goal #2: Improve safety awareness and functional problem solving. Goal #3: Improve short term memory to be able to recall recent events and info. Payroll Clerk Goals Goal #1: Improve cognitive linguistic skills to be able to return to [facility]. Plan Duration of Treatment: 1 Week Frequency of Treatment: 1x day Anticipated Discharge Destination: Home Treatment Code (1) Cognitive communication deficit: Code(s): R41.841 - Cognitive communication deficit
[2024-11-17] MEDS: OMNIPAQUE 350 MG/ML 100ML IVP ONE (14:55)
[2024-11-17] MEDS: TYLENOL PO PRN (15:51)
--- NOTE | 2024-11-17 16:59 | CT ---
EXAM: CHEST CTA WITH CONTRAST (PULMONARY ARTERY) HISTORY: Short of breath, tachycardia. TECHNIQUE: CTA acquisition of the chest from the thoracic inlet to the upper abdomen following IV con trast administration timed to filling of the pulmonary artery. IV Contrast: Administered. 3D/MIP/VR images were utilized. CT Dose Reduction Techniques Employed: Yes. COMPARISON: 07/21/2021 CT chest. FINDINGS: Lines, Tubes, Devices: None. Pulmonary Embolism: - Diagnostic quality: Adequate. - Central(Main/Lobar/Interlobar): No embolus. - Peripheral (Segmental/Subsegmental): No embolus. - Right ventricle/Left ventricle ratio (normal <0.9): Normal. Lung Parenchyma and Airways: Central airways are patent without endobronchial lesion. Left upper and bilateral lower lobe patchy lung opacities with a small left and trace right pleural e ffusion. No suspicious pulmonary nodule. Pleural Space: No pleural thickening. No pneumothorax. Thoracic Inlet, Mediastinum, and Isatu: Thyroid gland is normal. Prevascular lymph nodes measure up t o 1 cm in short axis. No lymphadenopathy. Heart, Vessels, and Pericardium: -Ascending aorta is ectatic measuring 3.1 cm with no atherosclerotic calcifications. -Main pulmonary artery is normal in caliber. -Heart chambers are not enlarged. -No valvular calcifications. -No coronary artery calcifications, however exam is not optimized for evaluation. -No pericardial effusion or thickening. Bones and Soft Tissues: Mild degenerative changes of the spine. Chest wall soft tissues are within n ormal limits. Upper Abdomen: No significant change, including splenomegaly. IMPRESSION: 1. No pulmonary embolism. 2. Extensive left lung and right basilar pneumonia with a small left and trace right pleural effusio ns. 3. Splenomegaly. All CT scans are performed using dose optimization techniques as appropriate to the performed exam an d include at least one of the following: Automated exposure control, adjustment of the mA and/or kV according t o size, and the use of iterative reconstruction technique.
[2024-11-18 05:34] LABS: BASOPHILS % (AUTO) 0.2 % (0.0-3.0); EOSINOPHILS # (AUTO) 0.4 K/ul (0.0-0.7); EOSINOPHILS % (AUTO) 7.4 % (0.0-7.0); HEMATOCRIT 32.3 % (37.0-47.0); HEMOGLOBIN 10.5 g/dl (12.0-16.0); IMMATURE GRANULOCYTE % (AUTO) 0.6 % (0.0-5.0); LYMPHOCYTES % (AUTO) 21.4 (10.0-50.0); MEAN CORPUSCULAR HEMOGLOBIN 35.4 pg (27.0-31.0); MEAN CORPUSCULAR HGB CONC 32.5 (31.8-35.4); MEAN CORPUSCULAR VOLUME 108.8 fl (81.0-99.0); MONOCYTES # (AUTO) 0.3 K/uL (0.4-2.0); MONOCYTES % (AUTO) 6.8 (0-10); NEUTROPHILS % (AUTO) 63.6 % (42.2-75.2); PLATELET COUNT 157 10^3/uL (140-440); RDW COEFFICIENT OF VARIATION 15.4 % (11.6-14.8); RED BLOOD COUNT 2.97 10^6/ul (4.20-5.40); WHITE BLOOD COUNT 4.72 K/ul (4.6-10.2)
[2024-11-18 05:50] LABS: ALANINE AMINOTRANSFERASE 17.6 U/L (0-35); ALBUMIN 2.92 g/dL (3.5-5.0); ALKALINE PHOSPHATASE 107.2 U/L (38-126); ASPARTATE AMINO TRANSFERASE 37.5 U/L (14-36); BILIRUBIN,TOTAL 0.15 mg/dL (0.2-1.3); BLOOD UREA NITROGEN 6.4 mg/dL (7-17); CALCIUM 8.47 mg/dL (8.4-10.2); CHLORIDE 112.2 mmol/L (98-107); CREATININE 0.65 mg/dL (0.60-1.30); GLUCOSE 84.2 mg/dL (74-106); POTASSIUM 3.15 mmol/L (3.5-5.1); SODIUM 142.9 mmol/L (134.5-145); TOTAL PROTEIN 4.81 g/dL (6.3-8.2)
[2024-11-18] MEDS: K-DUR PO ONE (09:08)
--- NOTE | 2024-11-18 12:10 | PCM.PROG ---
Date/Time Seen Date Seen by Provider: 11/18/24 Time Seen by Provider: 08:30 Provider Provider: ESTEPHANIE PLUNKETT [facility]-C[facility] Chief Complaint Chief Complaint: ALTERED MENTAL STATUS. PNA. UTI Subjective Subjective: Mentation seems improved. Patient continues to have bizarre behaviors but answers questions appropriately. Walked in hallways wtih therapy yesterday. Has remained on RA. CTA ruled out PE. Objective Appearance: Positive No Apparent Distress Chest/Lungs: Positive Rhonci (obdulia) Heart: Positive RRR GI/: Positive Soft, Nontender, Bowel Sounds Normal and No Distention Neurological: Positive Cranial Nerves Intact, Alert and Oriented Vital Signs Vital Signs: Vital Signs: Last 24 Hours 11/17/24 13:00 11/17/24 14:00 11/17/24 18:00 Temperature 97.1 F L 98.1 F Temperature Source Temporal Artery Scan Temporal Artery Scan Pulse Rate 107 H 104 H Pulse Rate [Apical] Respiratory Rate 16 20 Blood Pressure 112/74 128/84 Blood Pressure Mean 86 98 Blood Pressure Location Left Arm Right Arm Blood Pressure Position O2 Sat by Pulse Oximetry 96 95 Oxygen Delivery Method Room Air Room Air Telemetry Type Remote Telemetry Telemetry Monitoring Continues Telemetry Heart Rate 100 EKG MI Interval 0.20 EKG QRS Interval 0.08 Telemetry Strip Reading NSR 11/17/24 19:00 11/17/24 20:47 11/17/24 21:00 Temperature 98.5 F Temperature Source Temporal Artery Scan Pulse Rate 99 Pulse Rate [Apical] Respiratory Rate 21 H Blood Pressure 114/84 Blood Pressure Mean 94 Blood Pressure Location Right Arm Blood Pressure Position Supine O2 Sat by Pulse Oximetry 95 Oxygen Delivery Method Room Air Room Air Telemetry Type Remote Telemetry Telemetry Monitoring Continues Telemetry Heart Rate 97 EKG MI Interval 0.22 H EKG QRS Interval 0.07 Telemetry Strip [place] sinus rhythm w/ 1st avb 11/18/24 01:00 11/18/24 05:06 11/18/24 07:00 Temperature 97.1 F L Temperature Source Temporal Artery Scan Pulse Rate 104 H Pulse Rate [Apical] Respiratory Rate 21 H Blood Pressure 131/93 H Blood Pressure Mean 105 Blood Pressure Location Right Arm Blood Pressure Position Supine O2 Sat by Pulse Oximetry 96 Oxygen Delivery Method Room Air Telemetry Type Remote Telemetry Remote Telemetry Telemetry Monitoring Continues Continues Telemetry Heart Rate 108 H 97 EKG MI Interval 0.15 0.20 EKG QRS Interval 0.07 0.[address] NSR 11/18/24 07:38 11/18/24 10:00 Temperature 97.8 F Temperature Source Temporal Artery Scan Pulse Rate 109 H Pulse Rate [Apical] 100 Respiratory Rate 20 19 Blood Pressure 128/90 Blood Pressure Mean 102 Blood Pressure Location Right Arm Blood Pressure Position O2 Sat by Pulse Oximetry 97 Oxygen Delivery Method Room Air Room Air Telemetry Type Telemetry Monitoring Telemetry Heart Rate EKG MI Interval EKG QRS Interval Telemetry Strip [place] Lab Results Lab Results: Lab Results: Last 24 Hours 11/18/24 11/15/24 11/15/24 05:15 07:40 03:40 WBC 4.72 RBC 2.97 L Hgb 10.5 L Hct 32.3 L MCV 108.8 H MCH 35.4 H MCHC 32.5 RDW Coeff of Harpreet 15.4 H Plt Count 157 Immature Gran % (Auto) 0.6 Neut % (Auto) 63.6 Lymph % (Auto) 21.4 [place] % (Auto) 6.8 Eos % (Auto) 7.4 H Baso % (Auto) 0.2 Neut # (Auto) 3.0 Lymph # (Auto) 1.0 [place] # (Auto) 0.3 L Eos # (Auto) 0.4 Baso # (Auto) 0.0 Immature Gran # (Auto) 0.0 Sodium 142.9 Potassium 3.15 L Chloride 112.2 H Carbon Dioxide 23.0 Anion Gap 10.85 BUN 6.4 L Creatinine 0.65 Estimated GFR (MDRD) 97.00 BUN/Creatinine Ratio 9.84 Glucose 84.2 Calcium 8.47 Total Bilirubin 0.15 L AST 37.5 H ALT 17.6 Alkaline Phosphatase 107.2 Total Protein 4.81 L Albumin 2.92 L Globulin 1.89 Albumin/Globulin Ratio 1.54 Levetiracetam <2.0 L Urine Legionella Ag Negative Additional Comments Additional Comments: I have independently reviewed and interpreted the labs/EKGs/imaging ordered during this hospital stay. I have reviewed outside records that are available in our EMR that pertain to medical stay including imaging/notes/labs from previous visits. EXAM: CHEST CTA WITH CONTRAST (PULMONARY ARTERY) HISTORY: Short of breath, tachycardia. TECHNIQUE: CTA acquisition of the chest from the thoracic inlet to the upper abdomen following IV contrast administration timed to filling of the pulmonary artery. IV Contrast: Administered. 3D/MIP/VR images were utilized. CT Dose Reduction Techniques Employed: Yes. COMPARISON: 07/21/2021 CT chest. FINDINGS: Lines, Tubes, Devices: None. Pulmonary Embolism: - Diagnostic quality: Adequate. - Central(Main/Lobar/Interlobar): No embolus. - Peripheral (Segmental/Subsegmental): No embolus. - Right ventricle/Left ventricle ratio (normal <0.9): Normal. Lung Parenchyma and Airways: Central airways are patent without endobronchial lesion. Left upper and bilateral lower lobe patchy lung opacities with a small left and trace right pleural effusion. No suspicious pulmonary nodule. Pleural Space: No pleural thickening. No pneumothorax. Thoracic Inlet, Mediastinum, and Isatu: Thyroid gland is normal. Prevascular lymph nodes measure up to 1 cm in short axis. No lymphadenopathy. Heart, Vessels, and Pericardium: -Ascending aorta is ectatic measuring 3.1 cm with no atherosclerotic calcifications. -Main pulmonary artery is normal in caliber. -Heart chambers are not enlarged. -No valvular calcifications. -No coronary artery calcifications, however exam is not optimized for evaluation. -No pericardial effusion or thickening. Bones and Soft Tissues: Mild degenerative changes of the spine. Chest wall soft tissues are within normal limits. Upper Abdomen: No significant change, including splenomegaly. IMPRESSION: 1. No pulmonary embolism. 2. Extensive left lung and right basilar pneumonia with a small left and trace right pleural effusions. 3. Splenomegaly. Active Medications Active Medications: Medications Generic Name Dose Route Start Last Admin Trade Name Freq PRN Reason Stop Dose Admin Acetaminophen 650 mg 11/15/24 07:14 11/17/24 21:29 Acetaminophen 325 Mg Tablet PO 650 mg Q4H PRN Administration Mild Pain Ergocalciferol 50,000 unit 11/15/24 13:30 11/15/24 13:43 Ergocalciferol (Vitamin D2) 50,000 Unit Capsule PO 50,000 unit MoFr@0900 BETTY Administration Escitalopram Oxalate 5 mg 11/15/24 13:30 11/18/24 09:09 Escitalopram Oxalate 10 Mg Tablet PO 5 mg DAILY BETTY Administration Sodium Chloride 1,000 mls @ 75 mls/hr 11/15/24 07:30 11/18/24 03:53 Sodium Chloride IV 75 mls/hr .[id number] BETTY Administration Lamotrigine 150 mg 11/15/24 13:15 11/18/24 09:08 Lamotrigine 25 Mg Tablet PO 150 mg QAM BETTY Administration Lamotrigine 200 mg 11/15/24 21:00 11/17/24 20:59 Lamotrigine 25 Mg Tablet PO 200 mg BEDTIME BETTY Administration Levalbuterol HCl 1.25 mg 11/16/24 21:30 11/17/24 05:14 Levalbuterol Hcl 1.25 Mg/3 Ml Vial.Neb NEB 1.25 mg RTQ6H PRN Administration Wheezing Levothyroxine Sodium 75 mcg 11/16/24 06:00 11/18/24 05:05 Levothyroxine Sodium 75 Mcg Tablet PO 75 mcg QDAC2 BETTY Administration Lorazepam 1 mg 11/16/24 14:17 11/18/24 01:03 Lorazepam Inj 2 Mg/Ml Vial IVP 1 mg Q6HR PRN Administration Agitation Melatonin 9 mg 11/15/24 21:00 11/17/24 20:58 Melatonin 3 Mg Tablet PO 9 mg BEDTIME BETTY Administration Olanzapine 10 mg 11/15/24 21:00 11/17/24 20:59 Olanzapine 10 Mg Tablet PO 10 mg BEDTIME BETTY Administration Olanzapine 5 mg 11/16/24 21:49 Olanzapine 10 Mg Vial IM Q6HR PRN Agitation Ondansetron HCl 4 mg 11/15/24 07:18 Ondansetron Hcl/Pf 4 Mg/2 Ml Sdv IVP Q6H PRN Nausea / Vomiting Valacyclovir HCl 500 mg 11/16/24 09:00 11/18/24 09:09 Valacyclovir Hcl 500 Mg Tablet PO 500 mg TUTHSA BETTY Administration Assessment (1) Cognitive communication deficit: Status: Acute Code(s): R41.841 - Cognitive communication deficit SNOMED Code(s): [id number] Plan Plan: Acute Metabolic encephalopathy Improved. 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 CTA ruled out PE DVT: lovenox Dispo: possible discharge tomorrow, requests one more day to ensure her mentation is improved Review Statement Review Statement: I have personally discussed and reviewed the patient's visit/currently labs/imaging/decision making with Dr. Franco, my supervising attending. Greater that 50 minutes spent with patient, 50% of the time spent with this patient was devoted to counseling and coordination of care.
--- NOTE | 2024-11-18 15:02 | RS.SLTREAT ---
Speech/Language Treatment Note Date of Note: 11/18/24 Time of Treatment: 14:30 Subjective: Inga participated in skilled speech therapy. She was more alert and answered questions. She was redirected during the session to answer questions when she got distracted. Total treatment time: 25 Short Term Goals Goal #1: Improve orientation to person, place, time and situation. Activity/Accuracy: oriented to person, place, time and situation (why she is in the hospital but still gets confused about what is going on) Goal #2: Improve safety awareness and functional problem solving. Activity/Accuracy: Uses call light but not appropriately. Tries to get up without awareness of IV or safety. Goal #3: Improve short term memory to be able to recall recent events and info. Activity/Accuracy: She was able to recall some events from the day. Her awareness has improved. [employer] Business Intelligence Developer Goals Goal #1: Improve cognitive linguistic skills to be able to return to [facility]. Assessment: Inga presents with some improved cognition. She is able to carry on a conversation and attend to the conversation. She is still confused about events that happen around her.
[2024-11-18 15:11] LABS: SPECIMEN SOURCE Urine (.); STEP PNEUMO ORGANISM ID Not indicated. (.); STREP PNEUMO AG Negative (Negative); STREP PNEUMO BODY FLUID CULT Not indicated. (.)
[2024-11-19 05:55] LABS: BASOPHILS % (AUTO) 0.2 % (0.0-3.0); EOSINOPHILS # (AUTO) 0.3 K/ul (0.0-0.7); EOSINOPHILS % (AUTO) 6.8 % (0.0-7.0); HEMATOCRIT 32.4 % (37.0-47.0); HEMOGLOBIN 10.7 g/dl (12.0-16.0); IMMATURE GRANULOCYTE % (AUTO) 0.6 % (0.0-5.0); LYMPHOCYTES # (AUTO) 1.1 K/uL (0.60-3.4); LYMPHOCYTES % (AUTO) 22.7 (10.0-50.0); MEAN CORPUSCULAR HEMOGLOBIN 35.9 pg (27.0-31.0); MEAN CORPUSCULAR VOLUME 108.7 fl (81.0-99.0); MONOCYTES # (AUTO) 0.4 K/uL (0.4-2.0); NEUTROPHILS # (AUTO) 3.1 K/ul (2.0-6.9); NEUTROPHILS % (AUTO) 62.7 % (42.2-75.2); PLATELET COUNT 179 10^3/uL (140-440); RDW COEFFICIENT OF VARIATION 15.1 % (11.6-14.8); RED BLOOD COUNT 2.98 10^6/ul (4.20-5.40); WHITE BLOOD COUNT 4.98 K/ul (4.6-10.2)
[2024-11-19 06:05] LABS: ALANINE AMINOTRANSFERASE 17.9 U/L (0-35); ALBUMIN 3.28 g/dL (3.5-5.0); ALKALINE PHOSPHATASE 119.8 U/L (38-126); ASPARTATE AMINO TRANSFERASE 35.7 U/L (14-36); BILIRUBIN,TOTAL 0.61 mg/dL (0.2-1.3); BLOOD UREA NITROGEN 5.4 mg/dL (7-17); CALCIUM 8.92 mg/dL (8.4-10.2); CARBON DIOXIDE 24.8 mmol/L (22-30.0); CHLORIDE 110.1 mmol/L (98-107); CREATININE 0.7 mg/dL (0.60-1.30); GLUCOSE 85.1 mg/dL (74-106); POTASSIUM 3.38 mmol/L (3.5-5.1); SODIUM 142.1 mmol/L (134.5-145); TOTAL PROTEIN 5.12 g/dL (6.3-8.2)
--- NOTE | 2024-11-19 08:56 | DCSUM ---
Admission Date Admission Date: 11/15/24 Discharge Date Discharge Date: 11/19/24 Admission Diagnosis Admission Diagnosis: 1. Acute metabolic encephalopathy 2. UTI 3. Pneumonia Discharge Diagnosis Discharge Diagnosis: Acute Metabolic encephalopathy - resolved Urinary tract infection - ruled out Bilateral pneumonia, community acquired Hypokalemia - replaced Bipolar disorder Hypothyroidism History of shingles and ocular herpes zoster History of ALL Sinus tachycardia Hospital Provider Hospital Provider: ESTEPHANIE PLUNKETT PA-C, [facility] Primary Care Physician Primary Care Physician: ANGELIA BAILEY Summary of History and Physical Summary of History and Physical: 49-year-old female with past medical history significant for bipolar disorder, chronic urinary tract infections on Macrobid 3 times weekly, hypothyroidism, past history of shingles with ocular herpes taking antiviral medication, history of a CVA in 2014 not on antiplatelet therapy, and a history of ALL in remission presented to the ER last night due to confusion as well as cough and shortness of breath. The patient is not able to give history of present illness and her at bedside gives much of the report. He states that she has a history of chronic urinary tract infections and when she began feeling ill and getting confused yesterday he wanted to bring her to the emergency room. In the emergency room she was noted to have a potassium of 2.7, urinary tract infection with positive nitrites and leukocyte esterase as well as a chest x-ray demonstrating left-sided pneumonia. The patient is not oriented to her baseline and will be admitted to the hospitalist service at this time. Hospital Course Subjective: Patient's pneumonia treated with rocephin and azith. Viral swabs negative. She did well from a pneumonia standpoint. Has remained on RA. Continues to have a cough. Was mildly tachycardic despite fluids so CTA was ordered, which ruled out PE. Urine culture did not grow anything. She continued to be altered until 11/17 and started clearing mentally, not requiring IM zyprexa or IV ativan. She would answer questions appropriately, wasn't yelling out, etc, but would still be purposely incontinent on herself infront of staff at times. When asked if she does this at home, she would not answer. She once told her while staff was in the room "hold on I'm trying to poop" while lying in the bed. Otherwise she worked with therapy and was ambulatory in the hallway. Today upon evaluation for discharge, she was eating breakfast and answering questions appropriately. at bedside. He's comfortable with taking her home. Will discharge on azithromycin, cefpodoxime, and xopenex inhaler. F/u with pcp. Appearance: No Apparent Distress and Alert HEENT: MMM CVS: Other (RRR) Abdomen: Soft, Non-Tender and No Distention Respiratory: No Accessory Muscle Use Extremities: No Edema Vital Signs: Most Recent Vital Signs Temperature 97.4 F L 11/19/24 05:09 Temperature Source Temporal Artery Scan 11/19/24 05:09 Temperature Source Temporal Artery Scan 11/15/24 01:18 Pulse Rate 96 11/19/24 05:09 Respiratory Rate 18 11/19/24 05:09 Blood Pressure 136/90 11/19/24 05:09 Blood Pressure Mean 105 11/19/24 05:09 Blood Pressure Right Arm 133/84 11/15/24 12:10 Blood Pressure Location Left Arm 11/19/24 05:09 Blood Pressure Position Supine 11/19/24 05:09 O2 Sat by Pulse Oximetry 95 11/19/24 05:09 Oxygen Delivery Method Room Air 11/19/24 05:09 Height 5 ft 7 in 11/15/24 12:10 Weight 97.1 kg 11/15/24 12:10 Telemetry Type Remote Telemetry 11/19/24 01:00 Telemetry Monitoring Continues 11/19/24 01:00 Telemetry Heart Rate 102 H 11/19/24 01:00 Telemetry SPO2 100 07/06/17 19:00 EKG NV Interval 0.22 H 11/19/24 01:00 EKG QRS Interval 0.06 11/19/24 01:[address] WITH 1ST DEGREE AVB 11/19/24 01:00 Imaging: EXAM: SINGLE VIEW OF THE CHEST. History: Chest pain, short of breath Comparison: Chest radiograph 12/12/2023 FINDINGS: Heart size is normal. Left lower lobe infiltrate. No appreciable pleural fluid and no pneumothorax. Hazy opacity within the left upper lobe. No acute osseous abnormalities. Impression: Left lower lobe pneumonia and questionable left upper lobe pneumonia EXAM: CT HEAD WITHOUT CONTRAST 11/15/2024. SAGITTAL AND CORONAL REFORMATTED IMAGES OBTAINED HISTORY: Altered mental status COMPARISON: 04/14/2022 FINDINGS: There is no evidence of intracranial hemorrhage. The midline is maintained. There is no hydrocephalus. Stable right frontal lobe encephalomalacia. No cerebellar tonsillar ectopia. Evaluation of the calvarium shows no fracture. The mastoid air cells are normally pneumatized. Mucosal thickening throughout the paranasal sinuses consistent with pansinusitis. IMPRESSION: 1. No acute intracranial abnormality 2. Stable right frontal lobe encephalomalacia. 3. Pansinusitis . EXAM: CHEST CTA WITH CONTRAST (PULMONARY ARTERY) HISTORY: Short of breath, tachycardia. TECHNIQUE: CTA acquisition of the chest from the thoracic inlet to the upper abdomen following IV contrast administration timed to filling of the pulmonary artery. IV Contrast: Administered. 3D/MIP/VR images were utilized. CT Dose Reduction Techniques Employed: Yes. COMPARISON: 07/21/2021 CT chest. FINDINGS: Lines, Tubes, Devices: None. Pulmonary Embolism: - Diagnostic quality: Adequate. - Central(Main/Lobar/Interlobar): No embolus. - Peripheral (Segmental/Subsegmental): No embolus. - Right ventricle/Left ventricle ratio (normal <0.9): Normal. Lung Parenchyma and Airways: Central airways are patent without endobronchial lesion. Left upper and bilateral lower lobe patchy lung opacities with a small left and trace right pleural effusion. No suspicious pulmonary nodule. Pleural Space: No pleural thickening. No pneumothorax. Thoracic Inlet, Mediastinum, and Isatu: Thyroid gland is normal. Prevascular lymph nodes measure up to 1 cm in short axis. No lymphadenopathy. Heart, Vessels, and Pericardium: -Ascending aorta is ectatic measuring 3.1 cm with no atherosclerotic calcifications. -Main pulmonary artery is normal in caliber. -Heart chambers are not enlarged. -No valvular calcifications. -No coronary artery calcifications, however exam is not optimized for evaluation. -No pericardial effusion or thickening. Bones and Soft Tissues: Mild degenerative changes of the spine. Chest wall soft tissues are within normal limits. Upper Abdomen: No significant change, including splenomegaly. IMPRESSION: 1. No pulmonary embolism. 2. Extensive left lung and right basilar pneumonia with a small left and trace right pleural effusions. 3. Splenomegaly. Lab Results Last 24 Hours: 11/19/24 11/15/24 05:11 03:40 WBC 4.98 RBC 2.98 L Hgb 10.7 L Hct 32.4 L MCV 108.7 H MCH 35.9 H MCHC 33.0 RDW Coeff of Harpreet 15.1 H Plt Count 179 Immature Gran % (Auto) 0.6 Neut % (Auto) 62.7 Lymph % (Auto) 22.7 Garland % (Auto) 7.0 Eos % (Auto) 6.8 Baso % (Auto) 0.2 Neut # (Auto) 3.1 Lymph # (Auto) 1.1 Gar[place] # (Auto) 0.4 Eos # (Auto) 0.3 Baso # (Auto) 0.0 Immature Gran # (Auto) 0.0 Sodium 142.1 Potassium 3.38 L Chloride 110.1 H Carbon Dioxide 24.8 Anion Gap 10.58 BUN 5.4 L Creatinine 0.70 Estimated GFR (MDRD) 89.00 BUN/Creatinine Ratio 7.71 Glucose 85.1 Calcium 8.92 Total Bilirubin 0.61 AST 35.7 ALT 17.9 Alkaline Phosphatase 119.8 Total Protein 5.12 L Albumin 3.28 L Globulin 1.84 Albumin/Globulin Ratio 1.78 CSF Strep pneumoniae Ag Not indicated. Staphs Organism ID Not indicated. S. pneumoniae Ag Source Urine S. pneumoniae Ag Intrp Negative Ref Test Please Note Comment Discharge Instructions Discharge Planning: Discharge Planning > [address] Libby Franco. Discharge Medications: Medications at Discharge (Home Meds & RX) levothyroxine 75 mcg tablet (Synthroid) 75 mcg PO DAILY 05/17/14 lamotrigine 100 mg tablet (Lamictal) 200 mg PO BEDTIME 06/27/14 lamotrigine 100 mg tablet (Lamictal) 150 mg PO QAM 12/09/19 valacyclovir 500 mg tablet (Valtrex) 500 mg PO TUTHSA 12/09/19 ergocalciferol (vitamin D2) 1,250 mcg (50,000 unit) capsule (Vitamin D2) 50,000 unit PO 2 TIMES PER WEEK 06/10/20 hydroxyzine HCl 25 mg tablet 25 mg PO BEDTIME PRN Anxiety 07/17/21 levocetirizine 5 mg tablet 5 mg PO DAILY 07/17/21 melatonin 10 mg capsule 10 mg PO BEDTIME 09/19/23 prednisolone acetate 1 % eye drops,suspension (Pred Forte) 1 drp RIGHTEYE DAILY 09/19/23 conj estrogen-medroxyprogesterone 0.625 mg-2.5 mg tablet (Prempro) 1 tab PO DAILY 11/15/24 escitalopram oxalate 5 mg tablet 5 mg PO DAILY 11/15/24 fluorometholone 0.1 % eye drops,suspension 1 drp ophthalmic (eye) DAILY 11/15/24 lorazepam 1 mg tablet 1 mg PO Q8H PRN anxiety 11/15/24 nitrofurantoin monohydrate/macrocrystals 100 mg capsule 100 mg PO MOWEFR 11/15/24 olanzapine 10 mg tablet (Zyprexa) 10 mg PO BEDTIME 11/15/24 azithromycin 500 mg tablet 500 mg PO DAILY 1 day #1 tab 11/19/24 cefpodoxime 200 mg tablet 200 mg PO BID 3 days #6 tabs 11/19/24 levalbuterol tartrate 45 mcg/actuation aerosol inhaler (Xopenex HFA) 1 puff inhalation Q4-6H PRN shortness of breath or wheezing #15 grams 11/19/24 Discharge Plan Discharge Discharge Orders: Discharge Patient (ONCE); Ordered 11/19/24 Ordered By: ESTEPHANIE PLUNKETT Activity Restrictions/Additional Instructions: DISCHARGE TO HOME DX: PNEUMONIA FOLLOW UP WITH PCP [facility]URN WITH [facility] : [facility] Instructions: Urinary Tract Infection in Women (DC) Care Plan Goals: Problem: Altered Behavioral Pattern Goal: Exhibit appropriate behavior Instructions: Express feelings to family, friends, or others you trust Seek medical assistance if you feel unsafe Problem: Infection Goal #1: No signs/symptoms of infection Instructions: Monitor for sign/symptoms of infection Monitor temperature Goal #2: White blood cell counts Within Normal Limits Instructions: Obtain labs per physician orders Patient Disposition: HOME WITH FAMILY CARE Prescriptions: New azithromycin 500 mg tablet 500 mg PO DAILY 1 Days Qty: 1 0RF Rx Instructions: Take on 11/20/24 cefpodoxime 200 mg tablet 200 mg PO BID 3 Days Qty: 6 0RF Rx Instructions: must administer with a meal/food. Start tonight 11/19/24 levalbuterol tartrate [Xopenex HFA] 45 mcg/actuation HFA aerosol inhaler 1 puff inhalation Q4-6H PRN (Reason: shortness of breath or wheezing) Qty: 15 0RF Continued levothyroxine [Synthroid] 75 MCG tablet 75 mcg PO DAILY lamotrigine [Lamictal] 100 MG tablet 200 mg PO BEDTIME valacyclovir [Valtrex] 500 mg Tablet 500 mg PO TUTHSA lamotrigine [Lamictal] 100 mg Tablet 150 mg PO QAM levocetirizine 5 mg tablet 5 mg PO DAILY hydroxyzine HCl 25 mg Tablet 25 mg PO BEDTIME PRN (Reason: Anxiety) prednisolone acetate [Pred Forte] 1 % drops,suspension 1 drp RIGHTEYE DAILY melatonin 10 mg capsule 10 mg PO BEDTIME olanzapine [Zyprexa] 10 mg tablet 10 mg PO BEDTIME fluorometholone 0.1 % drops,suspension 1 drp ophthalmic (eye) DAILY lorazepam 1 mg tablet 1 mg PO Q8H PRN (Reason: anxiety) nitrofurantoin monohyd/m-cryst 100 mg capsule 100 mg PO MOWEFR Patient Comments: AT NITE Prempro 0.625-2.5 mg tablet 1 tab PO DAILY escitalopram oxalate 5 mg tablet 5 mg PO DAILY ergocalciferol (vitamin D2) [Vitamin D2] 50,000 unit Capsule 50,000 unit PO 2 TIMES PER WEEK Rx Instructions: on Mondays et Fridays. Discontinued levetiracetam 500 MG tablet 500 mg PO 1-2XD montelukast 10 mg tablet 10 mg PO DAILY albuterol sulfate 90 mcg/actuation HFA aerosol inhaler 2 inh INHALATION Q4-6H PRN (Reason: shortness of breath or wheezing) Patient Comments: [NO ORIGINAL SIG] escitalopram oxalate [Lexapro] 20 mg Tablet 20 mg PO DAILY Did you review [place] for ALL controlled substances?: Not Applicable Discussed opioids are addictive and Narcan is available by prescription or from pharmacy.: No Condition: Stable Referrals: ANGELIA BAILEY [Primary Care Provider] - 11/26/24 10:00 am
[2024-11-19] MEDS: CEFPODOXIME PROXETIL PO ONE (09:01)
[2024-11-19] MEDS: ZITHROMAX PO ONE (09:02)
[2024-11-19] MEDS: K-DUR PO ONE (09:02)
[2024-11-19 09:40] VITALS: BP 148/96; PULSE 108; RESP 16; TEMP 97.9
== END 2024-11-19 10:13 | disposition home or self-care (01) | DRG 70 ==
LOC: MEDSURG B 01:17 → ED 01:17 → MEDSURG B 06:21
PROVIDERS: ADMIT Hospitalist; ATTEND Physician Assistant